=== PATIENT | male | born 1960 | race Caucasian/White ===

== ENCOUNTER → 2017-12-04 10:09 | Outpatient (CLI) | payer OTHER, SELFPAY ==
--- NOTE | 2017-12-04 | DI.RAD.S_ITS ---
PROCEDURE: XR SHOULDER LT MIN 2V INDICATIONS: LEFT SHOULDER PAIN TECHNIQUE: 3 views of the shoulder were acquired. COMPARISON: None. FINDINGS: Bones: No fractures or dislocations. No suspicious bony lesions. Visualized ribs appear intact. Soft tissues: No suspicious soft tissue calcifications. IMPRESSION: Moderate acromioclavicular joint degenerative osteoarthritis as the likely cause for current tenderness. Degeneration of this type can produce chronic impingement and may be associated with rotator cuff tear. Dictated by: Bradley Mota M.D. on 12/04/2017 at 11:06 Approved by: Bradley Mota M.D. on 12/04/2017 at 11:06
== END ==
PROVIDERS: Family Provider Family Medicine; PCP Family Medicine; Visit Provider Family Medicine
DX: M25.512 Pain in left shoulder (principal); M19.012 Primary osteoarthritis, left shoulder
CPT/HCPCS: 73030

== ENCOUNTER → 2019-12-01 16:10 | Outpatient (CLI) | payer OTHER, SELFPAY ==
--- NOTE | 2019-12-01 16:15 | DI.RAD.S_ITS ---
PROCEDURE: XR FOOT RT MIN 3V INDICATIONS: RIGHT FOOT TOE PAIN TECHNIQUE: 3 views of the foot were acquired. COMPARISON: None. FINDINGS: Bones: No fractures or dislocations. No suspicious bony lesions. Mild bunion and bunionette. Mild degeneration at the 1st metatarsophalangeal joint and multiple interphalangeal joints. Soft tissues: No tibiotalar joint effusion. Achilles tendon appears normal. Atherosclerotic calcifications are noted. IMPRESSION: 1. Mild bunion and bunionette. 2. Mild degeneration at the 1st metatarsophalangeal joint and multiple interphalangeal joints. Dictated by: Brian Quinones M.D. on 12/01/2019 at 17:44 Approved by: Brian Quinones M.D. on 12/01/2019 at 17:46
== END ==
PROVIDERS: Family Provider Family Medicine; PCP Family Medicine; Referring Provider Family Medicine; Visit Provider Family Medicine
DX: M79.674 Pain in right toe(s) (principal); M21.611 Bunion of right foot; M21.621 Bunionette of right foot; M19.071 Primary osteoarthritis, right ankle and foot
CPT/HCPCS: 73630

== ENCOUNTER 2020-03-18 12:07 | Emergency (ER) | payer OTHER, SELFPAY ==
[2020-03-18 12:08] VITALS: BP 154/74; PULSE 94; RESP 14; TEMP 37.2; O2SAT 99; BMI 23.5
--- NOTE | 2020-03-18 12:11 | DI.RAD.S_ITS ---
PROCEDURE: XR WRIST LT MIN 3V INDICATIONS: wrist injury TECHNIQUE: 3 views of the wrist were acquired. COMPARISON: None. FINDINGS: Bones: There is a nondisplaced fracture involving the distal left radius with intra-articular extension. Degenerative changes of the left 1st and 2nd carpometacarpal joint and triscaphe joint. Degenerative changes of the left thumb metacarpophalangeal and interphalangeal joints. No suspicious bony lesions. Soft tissues: No suspicious soft tissue calcifications. Mild left wrist soft tissue swelling. IMPRESSION: Nondisplaced distal left radius fracture with intra-articular extension. Dictated by: Delano Claudio M.D. on 03/18/2020 at 12:52 Approved by: Delano Claudio M.D. on 03/18/2020 at 12:55
[2020-03-18] MEDS: HYDROCODONE/ACET 5/325 TABLET 1 TAB PO (12:27)
[2020-03-18] MEDS: IBUPROFEN 400 MG TABLET 800 MG PO (12:27)
--- NOTE | 2020-03-18 12:31 | ED.UPPEXIN ---
HPI - Extremity Injury (Upper) <Luisa Vázquez PA-C - Last Filed: 03/18/20 16:41> General Chief Complaint: Extremity Injury, Upper Stated Complaint: LEFT WRIST INJURY TODAY Time Seen by Provider: 03/18/20 12:09 Source: patient Mode of arrival: Ambulatory Limitations: no limitations History of Present Illness HPI narrative: This is a well-appearing but uncomfortable 59-year-old who presents complaining of left wrist pain on the thumb side after sustaining an injury just before arrival. He states he is right-handed but he was using both have his hands to try to pull the handle on a carrier washer to started he was having low difficulty and using a lot of force the handle snapped back hitting his left wrist on the inside of his wrist he said ?it was immediately so painful eye was rolling on the ground?. He says it is still very uncomfortable and is more painful if he tries to move it. He denies any other injuries or concerns this is an isolated complaint and mechanical injury. MD complaint: injury to: left Onset (ago): minute(s) (45) Other Extremity Injury: Left: wrist Other injuries: none Handedness: right Place: home Severity: moderate Severity scale (1-10): 7 Relieving factors: cold therapy and immobilization Exacerbating factors: movement of extremity Context: direct blow Associated symptoms: denies other symptoms Related Data Home Medications Medication Instructions Recorded Confirmed HYDROCODONE/ACET (HYDROCODONE 1 - 2 tab PO Q4HP #0 09/23/11 BITARTRATE-ACETAMINOPHEN) ibuprofen 200 mg PO Q4HP #0 09/23/11 Previous Rx's Medication Instructions Recorded hydrocodone-acetaminophen 1 tab PO Q4-6H PRN 3 Days #24 tab 03/18/20 Allergies Allergy/AdvReac Type Severity Reaction Status Date / Time lactose Allergy Verified 03/18/20 12:12 Review of Systems <Luisa Vázquez PA-C - Last Filed: 03/18/20 16:41> Review of Systems Narrative: GENERAL: Denies chills, fatigue, malaise, fever, sweats. HEENT: Denies sinus pain, ear pain, sore throat, difficulty swallowing, dizziness. RESPIRATORY: Denies dyspnea, cough, wheezing, hemoptysis, sputum. CARDIOVASCULAR: Denies chest pain, palpitations, orthopnea, edema, GASTROINTESTINAL: Denies nausea, vomiting, abdominal pain, diarrhea, constipation, melena. : Denies dysuria, frequency, incontinence, hematuria, urinary retention. MUSCULOSKELETAL: Positive for pain at the thumb side of his left wrist worse with range of motion, denies other weakness, joint pain, or bony pain SKIN: Denies rash, skin lesions, or other NEUROLOGIC: Denies weakness, headache, numbness, change in speech, confusion, seizures, incoordination. PSYCHIATRIC: No concerning psychosocial issues. 12 point review of systems is negative except for those stated above ROS Unobtainable: All systems reviewed & are unremarkable except as noted in HPI and below Patient History <Luisa Vázquez PA-C - Last Filed: 03/18/20 16:41> Social History Smoking Status: Unknown if ever smoked Smoking Status: Unknown if ever smoked alcohol intake frequency: 0-2 drinks per day Substance Use Type: does not use Exam <Luisa Vázquez PA-C - Last Filed: 03/18/20 16:41> Narrative Exam Narrative: GENERAL: 59 year old patient appears stated age. Well-nourished, well-developed patient, in moderate distress. HEAD: Atraumatic. Normocephalic. EYES: Pupils equal round and reactive. Extraocular motions intact. No scleral icterus. No injection or drainage. ENT: Nose without bleeding, purulent drainage. Airway patent. NECK: Trachea midline. Non tender CARDIOVASCULAR: Regular rate and rhythm without murmurs, gallops, or rubs. RESPIRATORY: Clear to auscultation. Breath sounds equal bilaterally. No wheezes, rales, or rhonchi. GASTROINTESTINAL: Abdomen soft, non-tender, nondistended. EXTREMITIES: There is mild swelling and significant tenderness over the left lateral distal radius. He is able to move at the wrist, perform finger to thumb opposition, flexion and extension of all fingers, he has pain with flexion and extension of the wrist and reduced range of motion with this. No proximal ulnar or radial tenderness. Capillary refill is less than 2 seconds in the affected hand, skin is pink warm and dry. Sensation is intact sharp dull sensation included. No edema or joint tenderness. BACK: Nontender without deformity or crepitance. No flank tenderness. NEURO: AOx3. SKIN: No rash or erythema of visible areas Initial Vital Signs Initial Vital Signs: Vital Signs Temperature 99.0 F 03/18/20 12:08 Pulse Rate 94 H 03/18/20 12:08 Respiratory Rate 14 03/18/20 12:08 Blood Pressure 154/74 H 03/18/20 12:08 Pulse Oximetry 99 03/18/20 12:08 <Cira Elias DO - Last Filed: 03/18/20 19:13> Initial Vital Signs Initial Vital Signs: Vital Signs Temperature 99.0 F 03/18/20 12:08 Pulse Rate 94 H 03/18/20 12:08 Respiratory Rate 14 03/18/20 12:08 Blood Pressure 154/74 H 03/18/20 12:08 Pulse Oximetry 99 03/18/20 12:08 Procedures <Luisa Vázquez PA-C - Last Filed: 03/18/20 16:41> Orthopedic Splinting/Casting Injury #1: Side: left Upper Extremity Injury Location: wrist Upper Extremity Immobilizer: sugar tong splint Post splinting neuro exam: intact Post splinting vascular exam: intact Placed by: Nursing Scores <Luisa Vázquez PA-C - Last Filed: 03/18/20 16:41> GCS Jacob coma scale eye opening: Spontaneous Jacob coma scale verbal response: Orientated Jacob coma scale motor response: Obey commands Jn coma scale total score: 15 Course <OVI Crook Last Filed: 03/18/20 16:41> Course Course Narrative: I spoke with Dr. Degroot, on-call orthopedist who reviewed the patient's imaging and agrees with the plan for zara-tong. He notes that if the patient is still nondisplaced when they see him in the office he may not need surgery. 14:15 Orders Ordered: ED Orders 03/18/20 12:11 XR wrist LT min 3V Stat Discontinued Medications Hydrocodone Bitart/Acetaminophen (Hydrocodone/Acet 5/325 Tablet) 1 tab PO NOW ONE Stop: 03/18/20 12:16 Last Admin: 03/18/20 12:27 Dose: 1 tab Documented by: LIYAH Ibuprofen (Ibuprofen 400 Mg Tablet) 800 mg PO NOW ONE Stop: 03/18/20 12:16 Last Admin: 03/18/20 12:27 Dose: 800 mg Documented by: LIYAH Vital Signs Vital signs: Vital Signs - 8 hr 03/18/20 12:08 Temperature 99.0 F Pulse Rate 94 H Respiratory Rate 14 Blood Pressure 154/74 H Pulse Oximetry 99 <Cira Elias DO - Last Filed: 03/18/20 19:13> Orders Ordered: ED Orders 03/18/20 12:11 XR wrist LT min 3V Stat Discontinued Medications Hydrocodone Bitart/Acetaminophen (Hydrocodone/Acet 5/325 Tablet) 1 tab PO NOW ONE Stop: 03/18/20 12:16 Last Admin: 03/18/20 12:27 Dose: 1 tab Documented by: LIYAH Ibuprofen (Ibuprofen 400 Mg Tablet) 800 mg PO NOW ONE Stop: 03/18/20 12:16 Last Admin: 03/18/20 12:27 Dose: 800 mg Documented by: LIYAH Vital Signs Vital signs: Vital Signs - 8 hr 03/18/20 12:08 Temperature 99.0 F Pulse Rate 94 H Respiratory Rate 14 Blood Pressure 154/74 H Pulse Oximetry 99 MDM - Extremity Injury (Upper) <Luisa Vázquez PA-C - Last Filed: 03/18/20 16:41> Imaging Data Extremity x-ray #1: Attestation: I personally reviewed and interpreted this imaging study as follows: Radiologist's Impression: [address] [id number] ReportSigned Patient: Adam Hackett RMR#: [id number]: [id number]:[id number]/Sex: 59 / MDate of Service: 03/18/20Loc: EDAccession Number: [id number] Procedure: XR wrist LT min 3V Ordering Provider: Luisa Vázquez P.A-C PROCEDURE: XR WRIST LT MIN 3V INDICATIONS: wrist injury TECHNIQUE: 3 views of the wrist were acquired. COMPARISON: None. FINDINGS: Bones: There is a nondisplaced fracture involving the distal left radius with intra-articular extension. Degenerative changes of the left 1st and 2nd carpometacarpal joint and triscaphe joint. Degenerative changes of the left thumb metacarpophalangeal and interphalangeal joints. No suspicious bony lesions. Soft tissues: No suspicious soft tissue calcifications. Mild left wrist soft tissue swelling. IMPRESSION: Nondisplaced distal left radius fracture with intra-articular extension. Dictated by: Delano Claudio M.D. on 03/18/2020 at 12:52 Approved by: Delano Claudio M.D. on 03/18/2020 at 12:55 [facility] Narrative Medical decision making narrative: This is a uncomfortable appearing 59-year-old gentleman who appears younger than his stated age presents complaining of left wrist pain after sustaining an injury when he was pulling the pull cord on a carrier washer and the handle snapped back into his wrist suddenly. X-ray reveals a nondisplaced intra-articular distal radial fracture. Exam is consistent with this. No other injuries noted. Patient is provided with pain medicine, splinted in the emergency department with a sugar-tong splint he is neurovascularly intact before and after splinting. Orthopedics is consulted. Patient is discharged with pain medicine, sling, advised follow-up with orthopedics return precautions provided, all questions answered. Discharge Plan Departure Patient Disposition: Home Clinical Impression: Acute pain of left wrist Distal radius fracture, left Qualifiers: Encounter type: initial encounter Fracture type: closed Fracture morphology: other intra-articular Qualified Code(s): S52.572A - Other intraarticular fracture of lower end of left radius, initial encounter for closed fracture Instructions: DI for Distal Radius Fracture Activity Restrictions/Additional Instructions: Thank you for allowing us to be part of your care in the emergency department today. As we discussed your x-rays did show that you have a fracture in your distal radius. It is currently nondisplaced and if it states his weight is possibly may not need surgery, however you do need to follow-up with orthopedics and have it rechecked and at that time you can discuss whether not surgery will be needed. I am including information on schedule [facility] and you can see 1 of their providers. We splinted you in the emergency department, you should keep the splint on until your follow-up appointment with Orthopedics also use the sling this will help significantly with pain you can also do ice on and off for the next 24-48 hours if you like to help with pain and swelling. I am prescribing some stronger pain medicine for you for short course but in general I recommend Tylenol and ibuprofen for pain. Keeping your wrist elevated will be helpful. If you do develop color changes in your hand such as blue purple or pale discoloration or you have a loss of feeling or any other symptoms of concern do not hesitate to get rechecked right away. There is no evidence of an emergent or life threatening illness at this time, but follow up with your doctor in 1-2 days and the orthopedic doctor next week is recommended nonetheless to continue to rule out serious underlying causes of your symptoms. Please call the office for an appointment. Please return to the Emergency Department for any worsening or persistent symptoms. Please take medications as directed. Prescriptions: New hydrocodone-acetaminophen 2.5-325 mg tablet 1 tab PO Q4-6H PRN (Reason: pain) 3 Days Qty: 24 RF: 0 No Action ibuprofen 200 MG tablet 200 mg PO Q4HP Qty: 0 RF: 0 HYDROCODONE/ACET (HYDROCODONE BITARTRATE-ACETAMINOPHEN) 1 - 2 tab PO Q4HP Qty: 0 RF: 0 Referrals: Kalina Degroot MD [Physician] - (Non displaced distal L radius intra-articular fracture) Florentino Saleh MD [Primary Care Provider] - <Cira Elias DO - Last Filed: 03/18/20 19:13> Cosign ED Attending Cosdianeature Attestation: I was immediately available in the department for consultation. Documentation has been reviewed. Imaging reviewed by myself. Patient case was discussed.
--- NOTE | 2020-03-19 10:50 | PC.NURSE ---
Received phone call from [facility] regarding narcotic prescription. Not available. Dr. Gill changed to 5mg/325mg strength, same instructions and amount. Pharmacist verbalized understanding and agreement.
== END 2020-03-18 14:35 | disposition home or self-care (01) ==
PROVIDERS: Emergency Provider Student in an Organized Health Care Education/Training Program; Family Provider Family Medicine; PCP Family Medicine
DX: S52.572A Other intraarticular fracture of lower end of left radius, initial encounter for closed fracture (principal); W22.8XXA Striking against or struck by other objects, initial encounter
CPT/HCPCS: 73110; 99283

== ENCOUNTER → 2020-05-31 15:43 | Outpatient (CLI) | payer OTHER, SELFPAY ==
--- NOTE | 2020-05-31 | DI.RAD.S_ITS ---
PROCEDURE: XR LUMBAR SPINE 2-3V INDICATIONS: bilateral hip pain, back pain TECHNIQUE: 3 views of the lumbar spine were acquired. COMPARISON: [facility], , L-SPINE 2-3 VIEWS, 09/07/2011, 7:12. FINDINGS: Bones: No acute fracture identified. Multilevel degenerative endplate sclerosis and spurring. Diffuse facet arthropathy. Moderate narrowing of the lumbar disc spaces diffusely from the level of L2-sacrum. Straightening of the normal lordotic curvature. Mild levocurvature centered at the L4 level. Grade 1 retrolisthesis of L2 on L3 and L3 on L4. Soft tissues: Large amount of stool noted. IMPRESSION: Interval progression of multilevel lumbar spondylosis and facet arthropathy since 09/07/11 Lateral curvature of the spine as above. Dictated by: John Nice M.D. on 05/31/2020 at 16:56 Approved by: John Nice M.D. on 05/31/2020 at 16:57
== END ==
PROVIDERS: Family Provider Family Medicine; PCP Family Medicine; Referring Provider Family Medicine; Visit Provider Family Medicine
DX: M25.551 Pain in right hip (principal); M25.552 Pain in left hip; M47.816 Spondylosis without myelopathy or radiculopathy, lumbar region; M54.9 Dorsalgia, unspecified
CPT/HCPCS: 72100

== ENCOUNTER → 2021-05-27 13:04 | Outpatient (CLI) | payer OTHER, SELFPAY ==
[2021-05-27 14:28] LABS: COVID19 -Nasal RAPID Negative (Negative)
== END ==
PROVIDERS: Family Provider Family Medicine; PCP Family Medicine; Visit Provider Family Medicine Sleep Medicine
DX: Z20.822 Contact with and (suspected) exposure to COVID-19 (principal)
CPT/HCPCS: 87635; C9803

== ENCOUNTER 2021-05-30 13:47 | Day surgery (SDC) | payer OTHER, SELFPAY ==
[2021-05-30 14:20] VITALS: BP 141/76; PULSE 61; RESP 18; TEMP 37.2; O2SAT 99
[2021-05-30] MEDS: SODIUM CHLORIDE 0.9% 1,000 ML 84 ML IV (14:45)
--- NOTE | 2021-05-30 15:01 | PM.HP.1 ---
History of Present Illness History of Present Illness Date Patient Seen: 05/30/21 Time Patient Seen: 15:01 Chief complaint: SCREENING COLONOSCOPY Narrative: Here for colon cancer screening. Patient History Family & Social History Social History: household members significant other Tobacco & Substance use: Smoking Status Never smoker alcohol intake frequency 0-2 drinks per day Substance Use Type does not use Meds Home Medications and Allergies Home Medications Medication Instructions Recorded Confirmed Type No Known Home Medications 05/30/21 05/30/21 History Allergies Allergy/AdvReac Type Severity Reaction Status Date / Time lactose Allergy Verified 05/30/21 14:13 Review of Systems Review of Systems ROS: Yes All systems reviewed with the patient and are negative except as otherwise documented Exam Vital Signs (past 8 hours): - 05/30/21 14:20 Temperature 98.9 F Pulse Rate 61 Respiratory Rate 18 Blood Pressure 141/76 H Pulse Oximetry 99 Oxygen Delivery Method Room Air Oxygen Flow Rate 99 Const General: cooperative and comfortable Orientation: alert HENMT Head: normocephalic Ears: external ears normal Nose: external nose normal Face and sinus: normal facial exam Mouth: oral mucosae normal Eyes General: appearance normal, both eyes and all related structures Neck Neck: normal visual inspection Chest Chest: normal inspection of the chest Resp Effort & Inspection: normal respiratory effort Cardio Rate: regular rate GI Inspection: normal to inspection Skin General: no rashes or lesions noted and No jaundice Neuro General: patient alert and moves all extremities Cognition: normal cognition Speech: speech normal Extrem General: no pedal edema Psych Appearance: grossly normal Assessment & Plan Assessment & Plan narrative: 61-year-old male indicated for colon cancer screening. Colonoscopy is to be pursued today Time Spent With Patient Critical Care time: I spent a total of [] minutes of critical care time on this patient's care today; this time is exclusive of procedural time.
--- NOTE | 2021-05-30 15:02 | PM.PREOP ---
Pre-operative Note COVID-19 COVID-19 status: Negative Result date/Date tested (Pos, Neg/Pending): 05/27/21 Criteria for continued procedure: Possibility delay results in more complex future surgery or treatment Interval Note History & Physical reviewed/Exam performed by Physician: Yes Changes to H&P: No ASA Class (for procedural sedation): I
--- NOTE | 2021-05-30 16:02 | SUR.OPER ---
CECUM AT 1600
--- NOTE | 2021-05-30 16:10 | P.OP.COLON_ITS ---
Operative Date/Time/Diagnoses Date of procedure: 05/30/21 Time of procedure: 16:10 Pre-op diagnosis: Colon cancer screening Post-op diagnosis: same Procedure & Clinicians Study performed: Colonoscopy Same procedure as scheduled: Yes Indications: Colon cancer screening Surgeon: Abdi Trevizo Procedure Notes SCOAP/Timeout: Done Procedure in detail: After the risks and benefits were explained, written and verbal informed consent was obtained. The patient was brought into the procedure room and placed into the left lateral decubitus position. Please see nurse sexton helper note for sedation details. Digital rectal examination was accomplished. The scope was introduced into the patient and advanced under direct visualization to the cecum as identified by the appendiceal orifice and ileocecal valve. The scope was slowly withdrawn to carefully examine the mucosa for any defects or lesions. Comprehensive imaging was accomplished throughout the rectum including the dentate line. The colon was decompressed, the scope was then removed from the patient who tolerated the procedure well. Bowel prep adequate Adult colonoscope Scope withdrawal time: 7 minutes Sedation minutes: 18 Specimen(s): none sent Complications: none Impression: Mild diverticulosis was noted in the sigmoid. Grade 1 internal hemorrhoids were noted. No significant polyps mass lesions nor inflammatory features identified throughout. Endoscopic diagnosis 1. Diverticulosis 2. Grade 1 hemorrhoids Post-procedure Plan for aftercare: Repeat colonoscopy 10 years time sooner should symptoms warrant an earlier exam. Disposition: PACU
[2021-05-30 16:13] VITALS: BP 109/70; PULSE 67; RESP 22; TEMP 36.3; O2SAT 99
[2021-05-30 16:18] VITALS: BP 104/60; PULSE 63; RESP 15; O2SAT 99
[2021-05-30 16:23] VITALS: BP 130/70; PULSE 61; RESP 16; O2SAT 99
[2021-05-30 16:29] VITALS: BP 130/70; PULSE 62; RESP 16; TEMP 36.5; O2SAT 99
[2021-05-30 16:31] VITALS: BP 129/67; PULSE 62; RESP 16; O2SAT 99
== END 2021-05-30 16:37 | disposition home or self-care (01) ==
LOC: ENDO 13:49
PROVIDERS: Family Provider Family Medicine; PCP Family Medicine; Referring Provider Internal Medicine Gastroenterology; Visit Provider Internal Medicine Gastroenterology
PROC: 0DJD8ZZ Inspection of Lower Intestinal Tract, Via Natural or Artificial Opening Endoscopic (ICD-10-PCS; CPT 45378; principal; 2021-05-30 15:00)
DX: Z12.11 Encounter for screening for malignant neoplasm of colon (principal); K57.30 Diverticulosis of large intestine without perforation or abscess without bleeding; K64.0 First degree hemorrhoids
CPT/HCPCS: 45378; J2704

== ENCOUNTER → 2021-08-23 09:41 | Outpatient (CLI) | payer OTHER, SELFPAY ==
--- NOTE | 2021-08-23 | DI.RAD.S_ITS ---
PROCEDURE: XR HAND LT MIN 3V INDICATIONS: LEFT HAND PAIN TECHNIQUE: 3 views of the hand(s) acquired. COMPARISON: None. FINDINGS: Bones: No fractures or dislocations. Carpal bones are normally aligned. No suspicious bony lesions. Mild polyarticular degenerative changes, for example at the 1st CMC and STT joints, scattered MCP joints and IP joints. Small periarticular lucency at the 4th digit DIP joint. Soft tissues: No suspicious soft tissue calcifications. IMPRESSION: 1. No acute osseous abnormality. 2. Scattered degenerative changes throughout the hand. Small periarticular lucency at the 4th digit DIP joint, could represent a subchondral cyst versus erosion. Inflammatory arthropathy cannot be excluded. Dictated by: Christopher Prince M.D. on 08/23/2021 at 18:53 Approved by: Christopher Prince M.D. on 08/23/2021 at 18:59
== END ==
PROVIDERS: Family Provider Family Medicine; PCP Family Medicine; Referring Provider Family Medicine; Visit Provider Family Medicine
DX: M79.642 Pain in left hand (principal)
CPT/HCPCS: 73130

== ENCOUNTER 2024-03-04 09:45 | Outpatient (RCR) | payer OTHER, SELFPAY ==
--- NOTE | 2024-01-24 17:42 | PT.OIE ---
Current Diagnoses Primary osteoarthritis, right shoulder (01/24/24) Stiffness of right shoulder, not elsewhere classified (01/24/24) Muscle weakness (generalized) (01/24/24) Visit Care Team Role Provider Type Florentino Saleh MD Family Provider Physician Primary Care Provider Specialty: Family Practice Address: [address] [place] [address], [facility] [place], [address] Email: [email or web address] Kyle Menendez PA-C Attending Provider Non-Staff Referring Provider Specialty: Medical Address: [address] [place] [address], [id number] Email: Physical Therapy Initial Evaluation PT-OP-A Visit Information Start: 01/11/24 18:16 Freq: Status: Active Protocol: Document 01/24/24 13:51 LRN (Rec: 01/24/24 14:43 LRN [id number]) Out-Patient Physical Therapy Visit Information Visit Information Visit Type Initial Evaluation Visit Start Time 13:51 Visit Stop Time 14:40 Visit Number 1 Evaluation Information Evaluation Date 01/24/24 Precautions Precautions R total shoulder arthroplasty, tenodesis of Long Head of Biceps. NWBing R UE. Sling at all times (6 wks), removal 3 times a day to move elbow wrist, fingers. PROM only: IR to body, ER to 0 deg's, FF to 90 deg's ABD to 0 deg's, arm in neutral, NO ER of arm. PT-OP-B Current Condition Start: 01/11/24 18:16 Freq: Status: Active Protocol: Document 01/24/24 13:51 LRN (Rec: 01/24/24 14:43 LRN [id number]) Current Condition History of Current Condition Onset Date Jan 02, 2024 Current Complaints Annoying pain at the shoulder and incision. R neck is tight wearing sling History of Current Condition Pt reports 3 wks ago (on Sun) undergoing an elective surgery of R shoulder GHJ arthroplasty due to arthritis, attending with a written protocol in hand. Pt is R hand dominant. He reports being taught previously Codman 's exercise (50x each direction) and table slides forward and to the side. After wearing sling 4-5 hrs he has tightness of the neck. States HERNÁNDEZ told him to wear the sling to make him comfortable . Wears when going out of the house but removes it when sitting. 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 He was hoping to be gone for 6 wks towards the end of January, but is willing to stay around if needed for his rehab. Future Testing and Treatments Planned Feb 11 is f/u appt. Treatment Goals Patient/Caregiver Goals Pt goals: Be able to scatch his head. Be able to hang a shirt up overhead. Relieve R shouulder pain that was constant and annoying. Consistent with a HEP. Personal Factors Other Personal Factors That May Effect Arthritic back pain. R Therapy/Recovery shoulder arthroscopic surgery 30-40 yrs ago and at age 19. PT-OP-C Subjective Start: 01/11/24 18:16 Freq: Status: Active Protocol: Document 01/24/24 13:51 LRN (Rec: 01/24/24 14:43 LRN [id number]) Patient Questionnaires Pelvic Pain and Urgency/Frequency Patient Symptom Scale Pelvic Pain Score 77.27 Quick Dash- Upper Extremity Quick Dash UE Score 72.72 OP-PT Pain Assessment Pain Assessment Grid Paper Pain Assessment Grid Completed Yes Location R shoulder Pain Location Details Anterior lateral chest at incision site. Intensity 3 Scale Used Numeric (0 - 10) Description Dull Description- Other Pulling sensation Frequency Constant Pain Aggravating Factors Exercise Pain Alleviating Factors Cold PT-OP-H Neuro Start: 01/11/24 18:16 Freq: Status: Active Protocol: Document 01/24/24 13:51 LRN (Rec: 01/24/24 14:43 LRN [id number]) Sensation Evaluation Gross Sensation Gross Sensation WNL PT-OP-J Posture/Palpation/Skin Start: 01/11/24 18:16 Freq: Status: Active Protocol: Document 01/24/24 13:51 LRN (Rec: 01/24/24 14:43 LRN [id number]) Posture Evaluation Position Standing Head/C-Spine Posture Forward Head Scapula Posture (R) Depressed Comments Posture Comments R shoulder low, decreased thoracic and lumbar curvature. Palpation Assessment Location R shoulder Palpation Location Anterior lateral chest in location of scar. Palpation Findings Soft Tissue Tightness, Tenderness Palpation Details Atrophy of perscapular muscles and mild increased R arm/hand . PT-OP-K Range of Motion Start: 01/11/24 18:16 Freq: Status: Active Protocol: Document 01/24/24 13:51 LRN (Rec: 01/24/24 14:43 LRN [id number]) Cervical Spine Range of Motion Cervical Spine Active Degrees Testing Position Sitting Flexion 65 Extension 32 Rotation Left 47 Rotation Right 47 Lateral Flexion Left 22 Lateral Flexion Right 23 ROM Limitations Soft Tissue Tightness Shoulder Goniometric Range of Motion Shoulder Right Passive Testing Position Supine Flexion 70 Abduction 2 Comments Pt able to rest his hand against his belly. ER - not assessed. Left Active Testing Position Sitting Flexion 162 Extension 50 Abduction 160 External Rotation at 0 degrees Abduction 65 Internal Rotation Behind Back (text) T8 Comments Behind head T4 PT-OP-M Strength Start: 01/11/24 18:16 Freq: Status: Active Protocol: Document 01/24/24 13:51 LRN (Rec: 01/24/24 14:43 LRN [id number]) Shoulder Strength Shoulder Manual Muscle Testing Right Comments Deferred testing due to recent surgery. PT-OP-Q Treatments Start: 01/11/24 18:16 Freq: Status: Active Protocol: Document 01/24/24 13:51 LRN (Rec: 01/24/24 14:43 LRN [id number]) Therapeutic Exercises Supine Exercises PROM Supine Exercise Name R shoulder flex Reps/Minutes 2' Comments Resting position: folded pillow under arm. Standing Exercises Codman's EX Standing Exercise Name R shoulder Codman's Side right Reps/Minutes 15x 2 each Self-Care/Home Management Treatment Education Other Education Discussed results of evaluation, goals, treatment, and plan of care (POC) with pt , attendance/cx/dns policy; pt agreeable to evaluation, goals, treatment, attendance/ cx/dns policy and POC. Activities Self-Care/Home Management Activities I/S pt to use cold pack for pain management. PT-OP-T Assessment and Plan Start: 01/11/24 18:16 Freq: Status: Active Protocol: Document 01/24/24 13:51 LRN (Rec: 01/24/24 14:43 LRN [id number]) Physical Therapy Assessment Rehab Potential Rehabilitation Potential Excellent Evaluation Complexity Number of Personal Factors/Comorbidities 1-2 Impairments Impairments Activity Tolerance,Edema,Pain, Posture,ROM,Soft Tissue Mobility,Strength Goals Three Impairment Decreased R shoulder strength limited by TSA protocol STG Duration 03/07/24 Sheet Tailer Goal (LTG) Pt will be able to hang a shirt up overhead. LTG Duration 04/18/24 Two Impairment Decreased functional R shoulder AROM Short Term Goal (STG) Pt will be able to relieve his constant and annoying R shoulder pain (rated 3/10) to tolerate sleeping in his bed at night. STG Duration 03/07/24 Sheet Tailer Goal (LTG) Pt will be able to scatch his head. LTG Duration 04/18/24 One Impairment Pt lacks appropriate self care HEP. Short Term Goal (STG) Pt will be educated in proper sitting/standing posture and self care pain management ( modalities and positioning). and education of significant other to assist pt in HEP as needed. STG Duration 03/07/24 Sheet Tailer Goal (LTG) Pt will be independent and consistent in an effective self care HEP for progressive R shoulder ROM and when appropriate strengthening. LTG Duration 04/18/24 Assessment Summary Assessment Pt is a 63 yo male who is ~3 wks (on 01/02/24) s/p elective R total arthroplasty of GHJ and tenodesis of Long Head of Biceps Muscle. He presents with his R am in a sling that he easily maneuvers off/on. He is having pain rated 3/10 indicating it is most uncomfortable at his healing scar location. He has been sleepin in a recliner chair and doing ex's he was shown to do at his last physician appointment (arm slides on the table foward and to the side) . He is appropriately limited in his R shoulder PROM and has a hard to relaxing his shoulder while PROM is being performed, even with cuing. The tolerated assessment well and appears be moving well with his previously shown PROM ex's; therefore the pt is expected to do well with therapy. With holiday scheduling and the pt planning of travel trips, the pt's progress may be slightly hindered resulting in a slight longer rehab time that otherwise would be expected. The pt will benefit from skilled phyiscal therapy to progress his ROM, minimize his pain and progress him toward prior level of function when appropriate, working within parameters of his issued protocol. Physical Therapy Plan Frequency and Duration Frequency of Treatment 2x/Week Duration of treatment (weeks) 12 Plan of Care Start Date 01/24/24 Plan of Care End Date 04/18/24 Therapeutic Interventions Therapeutic Interventions Home Exercise Program,Manual Therapy,Self-Care/Home Management,Soft Tissue Mobilization,Taping, Therapeutic Activities, Therapeutic Exercises Modalities Cold Pack/Ice Massage,Electric Stimulation,Hot Packs Next Visit Focus/Plan Next Note Type Treatment Note Next Visit Plan MMT L shoulder, elbow, wrist, fingers, R shoulder ER (sup, elbow by side). Review table slide and hold on lateral slides. Review elbow flex for AAROM to start. HEP: R forearm/wrist/hand/ finger ROM. AAROM R elbow. Educate pt in nighttime/ resting positioning w/pillows to avoid hyper ext of R shoulder. Educate in pain/edema management. Assess scar healing and start scar mob if appropriate. Monitor for proper mvmt for donning/doffing sling. Per protocol: PROM flex, ER to neutral; STM for pain management. End: Cold pack with elevation of arm if pt requests. POC: Rehab per protocol of R TSA w/tenodesis of Long Head of Biceps Rpr. Therapeutic Ex (when appropriate strengthening, ROM), Therapeutic Activity (posture and night positional training) , manual therapy (STM), Pt Education (HEP, Edema and pain mgmt). Modalities as needed (cold pack, MHP, E stim)
--- NOTE | 2024-01-28 16:29 | PT.OTN ---
Current Diagnoses Primary osteoarthritis, right shoulder (01/28/24) Stiffness of right shoulder, not elsewhere classified (01/28/24) Muscle weakness (generalized) (01/28/24) Physical Therapy Treatment Note PT-OP-A Visit Information Start: 01/11/24 18:16 Freq: Status: Active Protocol: Document 01/28/24 13:51 LRN (Rec: 01/28/24 14:38 LRN [id number]) Out-Patient Physical Therapy Visit Information Visit Information Visit Type Treatment Note Visit Start Time 13:51 Visit Stop Time 14:31 Visit Number 04/02 Evaluation Information Evaluation Date 01/24/24 Precautions Precautions R total shoulder arthroplasty, tenodesis of Long Head of Biceps. NWBing R UE. Sling at all times (6 wks), removal 3 times a day to move elbow wrist, fingers. PROM only: IR to body, ER to 0 deg's, FF to 90 deg's ABD to 0 deg's, arm in neutral, NO ER of arm. PT-OP-B Current Condition Start: 01/11/24 18:16 Freq: Status: Active Protocol: Document 01/24/24 13:51 LRN (Rec: 01/24/24 14:43 LRN [id number]) Current Condition History of Current Condition Onset Date Jan 02, 2024 Current Complaints Annoying pain at the shoulder and incision. R neck is tight wearing sling History of Current Condition Pt reports 3 wks ago (on Sun) undergoing an elective surgery of R shoulder GHJ arthroplasty due to arthritis, attending with a written protocol in hand. Pt is R hand dominant. He reports being taught previously Codman 's exercise (50x each direction) and table slides forward and to the side. After wearing sling 4-5 hrs he has tightness of the neck. States HERNÁNDEZ told him to wear the sling to make him comfortable . Wears when going out of the house but removes it when sitting. 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 He was hoping to be gone for 6 wks towards the end of January, but is willing to stay around if needed for his rehab. Future Testing and Treatments Planned Feb 11 is f/u appt. Treatment Goals Patient/Caregiver Goals Pt goals: Be able to scatch his head. Be able to hang a shirt up overhead. Relieve R shouulder pain that was constant and annoying. Consistent with a HEP. Personal Factors Other Personal Factors That May Effect Arthritic back pain. R Therapy/Recovery shoulder arthroscopic surgery 30-40 yrs ago and at age 19. PT-OP-C Subjective Start: 01/11/24 18:16 Freq: Status: Active Protocol: Document 01/28/24 13:51 LRN (Rec: 01/28/24 14:38 LRN [id number]) OP-PT Subjective Patient Comments Patient Comments States his pain hasn't increased. PT-OP-H Neuro Start: 01/11/24 18:16 Freq: Status: Active Protocol: Document 01/24/24 13:51 LRN (Rec: 01/24/24 14:43 LRN [id number]) Sensation Evaluation Gross Sensation Gross Sensation WNL PT-OP-J Posture/Palpation/Skin Start: 01/11/24 18:16 Freq: Status: Active Protocol: Document 01/24/24 13:51 LRN (Rec: 01/24/24 14:43 LRN [id number]) Posture Evaluation Position Standing Head/C-Spine Posture Forward Head Scapula Posture (R) Depressed Comments Posture Comments R shoulder low, decreased thoracic and lumbar curvature. Palpation Assessment Location R shoulder Palpation Location Anterior lateral chest in location of scar. Palpation Findings Soft Tissue Tightness, Tenderness Palpation Details Atrophy of perscapular muscles and mild increased R arm/hand . PT-OP-K Range of Motion Start: 01/11/24 18:16 Freq: Status: Active Protocol: Document 01/24/24 13:51 LRN (Rec: 01/24/24 14:43 LRN [id number]) Cervical Spine Range of Motion Cervical Spine Active Degrees Testing Position Sitting Flexion 65 Extension 32 Rotation Left 47 Rotation Right 47 Lateral Flexion Left 22 Lateral Flexion Right 23 ROM Limitations Soft Tissue Tightness Shoulder Goniometric Range of Motion Shoulder Right Passive Testing Position Supine Flexion 70 Abduction 2 Comments Pt able to rest his hand against his belly. ER - not assessed. Left Active Testing Position Sitting Flexion 162 Extension 50 Abduction 160 External Rotation at 0 degrees Abduction 65 Internal Rotation Behind Back (text) T8 Comments Behind head T4 PT-OP-M Strength Start: 01/11/24 18:16 Freq: Status: Active Protocol: Document 01/24/24 13:51 LRN (Rec: 01/24/24 14:43 LRN [id number]) Shoulder Strength Shoulder Manual Muscle Testing Right Comments Deferred testing due to recent surgery. PT-OP-Q Treatments Start: 01/11/24 18:16 Freq: Status: Active Protocol: Document 01/28/24 13:51 LRN (Rec: 01/28/24 14:38 LRN [id number]) Therapeutic Exercises Supine Exercises PROM Supine Exercise Name PROM ER Side right Equipment Used Cane, 2 pillows support under R arm, double pillow under head Reps/Minutes 5' Sitting Exercises Shoulder shrugs Side bilateral Reps/Minutes 3' 1 SH/2 SR Scapular retraction Side bilateral Reps/Minutes 3' 1-2 SH/1-2 SR Shoulder ER hand on belly to neutral Sitting Exercise Name Trng for PROM Side right Reps/Minutes 5' Table slides Sitting Exercise Name PROM (forward SL, DL) : Flex training of max 90 deg's Side right Reps/Minutes 13' Comments Extra time for set up Manual Therapy Treatment Consent Patient gave verbal consent for manual Yes treatment Soft Tissue Mobilization R upper shoulder Body Location R UT, C/S paraspinals Mobilization Type Strumming,Trigger Point Release Intensity/Depth Moderate Body Position Sitting Comments TrP at Supraspinatus. Strumming at C/S paraspinals. R Shoulder scar Body Location R anterior shoulder Mobilization Type Other Intensity/Depth Superficial Body Position Sitting Comments Superficial scar mob. I/S pt in self scar mob in areas of full healing. Self-Care/Home Management Treatment Education Other Education Educated pt in nighttime/ resting positioning w/pillows to avoid hyper ext of R shoulder. Activities Self-Care/Home Management Activities Issued & reviewed HEP: R AAROM forearm/wrist/hand, AAROM R elbow, neck L SB stretch. PT-OP-T Assessment and Plan Start: 01/11/24 18:16 Freq: Status: Active Protocol: Document 01/28/24 13:51 LRN (Rec: 01/28/24 14:38 N [id number]) Physical Therapy Assessment Goals Three Impairment Decreased R shoulder strength limited by TSA protocol STG Duration 03/07/24 Correction Goal (LTG) Pt will be able to hang a shirt up overhead. LTG Duration 04/18/24 Two Impairment Decreased functional R shoulder AROM Short Term Goal (STG) Pt will be able to relieve his constant and annoying R shoulder pain (rated 3/10) to tolerate sleeping in his bed at night. STG Duration 03/07/24 Meteorological Observer Goal (LTG) Pt will be able to scatch his head. LTG Duration 04/18/24 One Impairment Pt lacks appropriate self care HEP. Short Term Goal (STG) Pt will be educated in proper sitting/standing posture and self care pain management ( modalities and positioning). and education of significant other to assist pt in HEP as needed. STG Duration 03/07/24 Correction Goal (LTG) Pt will be independent and consistent in an effective self care HEP for progressive R shoulder ROM and when appropriate strengthening. LTG Duration 04/18/24 Assessment Summary Assessment Pt is a 63 yo male 2 days short of 4 wks po R TSA and tenodesis of Long Head of Biceps (late phase of protocol (4-6 wks). He comes in with no sling but forearm supported by coat in his buttoned coat. Reviewed pt's surgeon protocol; pt has + attitude to adhering to protocol and commits to stopping lateral table slides. R shoulder tightness limits flex to max of 90 deg's PROM; pt able to achieve neutral position of arm for ER 0 deg's w/o difficulty. Physical Therapy Plan Frequency and Duration Frequency of Treatment 2x/Week Duration of treatment (weeks) 12 Plan of Care Start Date 01/24/24 Plan of Care End Date 04/18/24 Next Visit Focus/Plan Next Note Type Treatment Note Next Visit Plan Next: Scheduling with purple slip. MMT strength or L shoulder/elbow/wrist/fingers. Start with Codman's warm up, review previously issued HEP. Educate in proper sitting/ standing posture and self care pain management (modalities and positioning) Issue HEP: finger AROM & PROM R shoulder Flex (table slide). Educate in pain/edema management. Assess scar healing and start scar mob if appropriate. Monitor for proper mvmt for donning/doffing sling. Per protocol: PROM flex, ER to neutral; STM for pain management. End: Cold pack with elevation of arm if pt requests. POC: Rehab per protocol of R TSA w/tenodesis of Long Head of Biceps Rpr. Therapeutic Ex (when appropriate strengthening, ROM), Therapeutic Activity (posture and night positional training) , manual therapy (STM), Pt Education (HEP, Edema and pain mgmt). Modalities as needed (cold pack, MHP, E stim)
--- NOTE | 2024-01-31 16:05 | PT.OTN ---
Current Diagnoses Primary osteoarthritis, right shoulder (01/31/24) Stiffness of right shoulder, not elsewhere classified (01/31/24) Muscle weakness (generalized) (01/31/24) Physical Therapy Treatment Note PT-OP-A Visit Information Start: 01/11/24 18:16 Freq: Status: Active Protocol: Document 01/31/24 14:35 SW (Rec: 01/31/24 16:03 SW [id number]) Out-Patient Physical Therapy Visit Information Visit Information Visit Type Treatment Note Visit Note Guido Visit Start Time 13:34 Visit Stop Time 14:14 Visit Number 3 Number of VETERINARY SURGEON Visits 1 Precautions Precautions R total shoulder arthroplasty, tenodesis of Long Head of Biceps. NWBing R UE. Sling at all times (6 wks), removal 3 times a day to move elbow wrist, fingers. PROM only: IR to body, ER to 0 deg's, FF to 90 deg's ABD to 0 deg's, arm in neutral, NO ER of arm. PT-OP-B Current Condition Start: 01/11/24 18:16 Freq: Status: Active Protocol: Document 01/24/24 13:51 LRN (Rec: 01/24/24 14:43 LRN [id number]) Current Condition History of Current Condition Onset Date Jan 02, 2024 Current Complaints Annoying pain at the shoulder and incision. R neck is tight wearing sling History of Current Condition Pt reports 3 wks ago (on Sun) undergoing an elective surgery of R shoulder GHJ arthroplasty due to arthritis, attending with a written protocol in hand. Pt is R hand dominant. He reports being taught previously Codman 's exercise (50x each direction) and table slides forward and to the side. After wearing sling 4-5 hrs he has tightness of the neck. States HERNÁNDEZ told him to wear the sling to make him comfortable . Wears when going out of the house but removes it when sitting. 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 He was hoping to be gone for 6 wks towards the end of January, but is willing to stay around if needed for his rehab. Future Testing and Treatments Planned Feb 11 is f/u appt. Treatment Goals Patient/Caregiver Goals Pt goals: Be able to scatch his head. Be able to hang a shirt up overhead. Relieve R shouulder pain that was constant and annoying. Consistent with a HEP. Personal Factors Other Personal Factors That May Effect Arthritic back pain. R Therapy/Recovery shoulder arthroscopic surgery 30-40 yrs ago and at age 19. PT-OP-C Subjective Start: 01/11/24 18:16 Freq: Status: Active Protocol: Document 01/31/24 14:35 SW (Rec: 01/31/24 16:03 SW [id number]) OP-PT Subjective Patient Comments Patient Comments Pt reports pain from starting exercises otherwise no other changes. PT-OP-H Neuro Start: 01/11/24 18:16 Freq: Status: Active Protocol: Document 01/24/24 13:51 LRN (Rec: 01/24/24 14:43 LRN [id number]) Sensation Evaluation Gross Sensation Gross Sensation WNL PT-OP-J Posture/Palpation/Skin Start: 01/11/24 18:16 Freq: Status: Active Protocol: Document 01/24/24 13:51 LRN (Rec: 01/24/24 14:43 LRN [id number]) Posture Evaluation Position Standing Head/C-Spine Posture Forward Head Scapula Posture (R) Depressed Comments Posture Comments R shoulder low, decreased thoracic and lumbar curvature. Palpation Assessment Location R shoulder Palpation Location Anterior lateral chest in location of scar. Palpation Findings Soft Tissue Tightness, Tenderness Palpation Details Atrophy of perscapular muscles and mild increased R arm/hand . PT-OP-K Range of Motion Start: 01/11/24 18:16 Freq: Status: Active Protocol: Document 01/24/24 13:51 LRN (Rec: 01/24/24 14:43 LRN [id number]) Cervical Spine Range of Motion Cervical Spine Active Degrees Testing Position Sitting Flexion 65 Extension 32 Rotation Left 47 Rotation Right 47 Lateral Flexion Left 22 Lateral Flexion Right 23 ROM Limitations Soft Tissue Tightness Shoulder Goniometric Range of Motion Shoulder Right Passive Testing Position Supine Flexion 70 Abduction 2 Comments Pt able to rest his hand against his belly. ER - not assessed. Left Active Testing Position Sitting Flexion 162 Extension 50 Abduction 160 External Rotation at 0 degrees Abduction 65 Internal Rotation Behind Back (text) T8 Comments Behind head T4 PT-OP-M Strength Start: 01/11/24 18:16 Freq: Status: Active Protocol: Document 01/24/24 13:51 LRN (Rec: 01/24/24 14:43 LRN [id number]) Shoulder Strength Shoulder Manual Muscle Testing Right Comments Deferred testing due to recent surgery. PT-OP-Q Treatments Start: 01/11/24 18:16 Freq: Status: Active Protocol: Document 01/31/24 14:35 (Rec: 01/31/24 16:03 [id number]) Therapeutic Exercises Supine Exercises PROM Supine Exercise Name PROM ER to neutral Side right Equipment Used Cane, 2 pillows support under R arm, double pillow under head Reps/Minutes 5' Comments cues for setup, passive ROM only, cued for breathwork Sitting Exercises Finger ROM Sitting Exercise Name Flex/ext, Abd/add Side right Comments Issued HEP hand written, print next session, HEP2go was down Shoulder shrugs Sitting Exercise Name Reveiwed Side bilateral Reps/Minutes 1 SH/2 SR Scapular retraction Sitting Exercise Name Reviewed Side bilateral Reps/Minutes 1-2 SH/1-2 SR Table slides Sitting Exercise Name PROM (forward SL, DL) : Flex training of max 90 deg's Side right Equipment Used Issued HEP hand written w/ precautions, print next session HEP2go was down Comments Extra time for set up, cued for staying within more comfortable range Standing Exercises Codman's EX Standing Exercise Name R shoulder Codman's, warm up Side right Reps/Minutes 15x 2 each Self-Care/Home Management Treatment Education Patient Education Home Exercise Program,Joint Protection,Pain Management, Posture,Safety Other Education pt educucation for sleep positioning, precautions, precautions with HEP, Sitting Posture, Modalities for pain PT-OP-T Assessment and Plan Start: 01/11/24 18:16 Freq: Status: Active Protocol: Document 01/31/24 14:35 (Rec: 01/31/24 16:03 [id number]) Physical Therapy Assessment Goals Three Impairment Decreased R shoulder strength limited by TSA protocol STG Duration 03/07/24 Customs Verifier Goal (LTG) Pt will be able to hang a shirt up overhead. LTG Duration 04/18/24 Two Impairment Decreased functional R shoulder AROM Short Term Goal (STG) Pt will be able to relieve his constant and annoying R shoulder pain (rated 3/10) to tolerate sleeping in his bed at night. STG Duration 03/07/24 Customs Verifier Goal (LTG) Pt will be able to scatch his head. LTG Duration 04/18/24 One Impairment Pt lacks appropriate self care HEP. Short Term Goal (STG) Pt will be educated in proper sitting/standing posture and self care pain management ( modalities and positioning). and education of significant other to assist pt in HEP as needed. 01/31/24: Pt education in proper sitting posture, pt education on modalities for pain, sleep positioning STG Duration 03/07/24 (progressing 01/31/24 ) Customs Verifier Goal (LTG) Pt will be independent and consistent in an effective self care HEP for progressive R shoulder ROM and when appropriate strengthening. 01/31/24: Table slides(passive R shoulder flex, less than 90 degrees), Finger AROM LTG Duration 04/18/24 Assessment Summary Assessment Continued per pt protocol. Pt reports some pain from starting new exercises last session, reviewed exercises this session to ensure correct execution with passive movement only, cueing required initially, then pt demonstrated good carryover. Instructed pt to decrease table slide ROM to improve tolerance. Issued hand written HEP for table slides and finger AROM due to HEP2go system being down. Noted ROM limit of no more than 90 degrees flex for table slides and passive movement only on hand written HEP, reviewed pt setup and instructed and pt demonstrated good form without mm activation in R shoulder. Issued hand written HEP for finger AROM. Plan to followup on pt tolerance next session and print Table slides/finger AROM for HEP file and pt copy next session, due to HEP2go being down and unable to print . Cues throughout session to support RUE to ensure pt does not activate right shoulder muscles. Pt tolerated treatment well with no increase in pain throughout session. Physical Therapy Plan Frequency and Duration Frequency of Treatment 2x/Week Duration of treatment (weeks) 12 Plan of Care Start Date 01/24/24 Plan of Care End Date 04/18/24 Therapeutic Interventions Therapeutic Interventions Home Exercise Program,Manual Therapy,Self-Care/Home Management,Soft Tissue Mobilization,Taping, Therapeutic Activities, Therapeutic Exercises Modalities Cold Pack/Ice Massage,Electric Stimulation,Hot Packs Next Visit Focus/Plan Next Note Type Treatment Note Next Visit Plan Next: MMT strength or L shoulder/elbow/wrist/fingers. Start with Codman's warm up, review previously issued HEP for tolerance. Educate in proper standing posture Issue HEP: finger AROM & PROM R shoulder Flex (table slide)- issued Hand written with precautions and instructions due to HEP2go being down, plan to issue HEP printout next session. Educate in pain/edema management. Assess scar healing and start scar mob if appropriate. Monitor for proper mvmt for donning/doffing sling. Per protocol: PROM flex, ER to neutral; STM for pain management. End: Cold pack with elevation of arm if pt requests. POC: Rehab per protocol of R TSA w/tenodesis of Long Head of Biceps Rpr. Therapeutic Ex (when appropriate strengthening, ROM), Therapeutic Activity (posture and night positional training) , manual therapy (STM), Pt Education (HEP, Edema and pain mgmt). Modalities as needed (cold pack, MHP, E stim)
--- NOTE | 2024-02-05 17:01 | PT.OTN ---
Current Diagnoses Primary osteoarthritis, right shoulder (02/05/24) Stiffness of right shoulder, not elsewhere classified (02/05/24) Muscle weakness (generalized) (02/05/24) Physical Therapy Treatment Note PT-OP-A Visit Information Start: 01/11/24 18:16 Freq: Status: Active Protocol: Document 02/05/24 11:37 SW (Rec: 02/05/24 12:51 SW [id number]) Out-Patient Physical Therapy Visit Information Visit Information Visit Type Treatment Note Visit Note Guido Visit Start Time 11:34 Visit Stop Time 11:14 Visit Number 4/ Number of HOME HEALTH CARE CASE MANAGER Visits 2 Precautions Precautions R total shoulder arthroplasty, tenodesis of Long Head of Biceps. NWBing R UE. Sling at all times (6 wks), removal 3 times a day to move elbow wrist, fingers. PROM only: IR to body, ER to 0 deg's, FF to 90 deg's ABD to 0 deg's, arm in neutral, NO ER of arm. PT-OP-B Current Condition Start: 01/11/24 18:16 Freq: Status: Active Protocol: Document 01/24/24 13:51 LRN (Rec: 01/24/24 14:43 LRN [id number]) Current Condition History of Current Condition Onset Date Jan 02, 2024 Current Complaints Annoying pain at the shoulder and incision. R neck is tight wearing sling History of Current Condition Pt reports 3 wks ago (on Sun) undergoing an elective surgery of R shoulder GHJ arthroplasty due to arthritis, attending with a written protocol in hand. Pt is R hand dominant. He reports being taught previously Codman 's exercise (50x each direction) and table slides forward and to the side. After wearing sling 4-5 hrs he has tightness of the neck. States HERNÁNDEZ told him to wear the sling to make him comfortable . Wears when going out of the house but removes it when sitting. 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 He was hoping to be gone for 6 wks towards the end of January, but is willing to stay around if needed for his rehab. Future Testing and Treatments Planned Feb 11 is f/u appt. Treatment Goals Patient/Caregiver Goals Pt goals: Be able to scatch his head. Be able to hang a shirt up overhead. Relieve R shouulder pain that was constant and annoying. Consistent with a HEP. Personal Factors Other Personal Factors That May Effect Arthritic back pain. R Therapy/Recovery shoulder arthroscopic surgery 30-40 yrs ago and at age 19. PT-OP-C Subjective Start: 01/11/24 18:16 Freq: Status: Active Protocol: Document 02/05/24 11:37 SW (Rec: 02/05/24 12:51 SW [id number]) OP-PT Subjective Patient Comments Patient Comments Pt came into session w/out sling, RUE supported by buttoned coat. Pt reports exercises are feeling better, good carryover of HEP. Pt reports discomfort in neck. PT-OP-H Neuro Start: 01/11/24 18:16 Freq: Status: Active Protocol: Document 01/24/24 13:51 LRN (Rec: 01/24/24 14:43 LRN [id number]) Sensation Evaluation Gross Sensation Gross Sensation WNL PT-OP-J Posture/Palpation/Skin Start: 01/11/24 18:16 Freq: Status: Active Protocol: Document 01/24/24 13:51 LRN (Rec: 01/24/24 14:43 LRN [id number]) Posture Evaluation Position Standing Head/C-Spine Posture Forward Head Scapula Posture (R) Depressed Comments Posture Comments R shoulder low, decreased thoracic and lumbar curvature. Palpation Assessment Location R shoulder Palpation Location Anterior lateral chest in location of scar. Palpation Findings Soft Tissue Tightness, Tenderness Palpation Details Atrophy of perscapular muscles and mild increased R arm/hand . PT-OP-K Range of Motion Start: 01/11/24 18:16 Freq: Status: Active Protocol: Document 01/24/24 13:51 LRN (Rec: 01/24/24 14:43 LRN [id number]) Cervical Spine Range of Motion Cervical Spine Active Degrees Testing Position Sitting Flexion 65 Extension 32 Rotation Left 47 Rotation Right 47 Lateral Flexion Left 22 Lateral Flexion Right 23 ROM Limitations Soft Tissue Tightness Shoulder Goniometric Range of Motion Shoulder Right Passive Testing Position Supine Flexion 70 Abduction 2 Comments Pt able to rest his hand against his belly. ER - not assessed. Left Active Testing Position Sitting Flexion 162 Extension 50 Abduction 160 External Rotation at 0 degrees Abduction 65 Internal Rotation Behind Back (text) T8 Comments Behind head T4 PT-OP-M Strength Start: 01/11/24 18:16 Freq: Status: Active Protocol: Document 01/24/24 13:51 LRN (Rec: 01/24/24 14:43 LRN [id number]) Shoulder Strength Shoulder Manual Muscle Testing Right Comments Deferred testing due to recent surgery. PT-OP-Q Treatments Start: 01/11/24 18:16 Freq: Status: Active Protocol: Document 02/05/24 11:37 SW (Rec: 02/05/24 12:51 SW [id number]) Therapeutic Exercises Supine Exercises PROM Supine Exercise Name PROM ER to neutral- verbal review only Side right Equipment Used Cane, 2 pillows support under R arm, double pillow under head Comments cues for setup, passive ROM only, cued for breathwork Sitting Exercises Finger ROM Sitting Exercise Name Pt declined printed HO Shoulder shrugs Sitting Exercise Name Reveiwed Side bilateral Reps/Minutes 1 SH/2 SR Scapular retraction Sitting Exercise Name verbal review Table slides Sitting Exercise Name PROM (forward SL, DL) : Flex training of max 90 deg's Side right Equipment Used Pt demonstrated good carryover PROM and precautions, declined printed HO Comments Extra time for set up, cued for staying within more comfortable range Manual Therapy Treatment Consent Patient gave verbal consent for manual Yes treatment Soft Tissue Mobilization R upper shoulder Body Location R UT, C/S paraspinals Mobilization Type Strumming,Trigger Point Release Intensity/Depth Moderate Body Position Sitting Comments TrP at Supraspinatus. Strumming at C/S paraspinals. R Shoulder scar Body Location R anterior shoulder Mobilization Type Other Intensity/Depth Superficial Body Position Sitting Comments Superficial scar mob. I/S pt in self scar mob in areas of full healing. Self-Care/Home Management Treatment Education Patient Education Home Exercise Program,Joint Protection,Pain Management, Posture,Safety Other Education Pt education for exercises. Pt education on precautions and for sling use. Further education on modalities, trialed heat this session for cervical/UT tension to relax muscles. Edema management. PT-OP-R Modalities Start: 01/11/24 18:16 Freq: Status: Active Protocol: Document 02/05/24 11:37 SW (Rec: 02/05/24 17:01 SW [id number]) Hot Pack/Cold Pack Treatment MHP Location Cervical/upper shoulder Patient Position Sitting Patient Tolerance Good Comments zayas within reach of VAISHALI RUE positioned with pillows, pt reported good tolerance, layered with towels/MHP cover, x15 min PT-OP-T Assessment and Plan Start: 01/11/24 18:16 Freq: Status: Active Protocol: Document 02/05/24 11:37 SW (Rec: 02/05/24 12:51 SW [id number]) Physical Therapy Assessment Goals Three Impairment Decreased R shoulder strength limited by TSA protocol STG Duration 03/07/24 Client Resolution Specialist Goal (LTG) Pt will be able to hang a shirt up overhead. LTG Duration 04/18/24 Two Impairment Decreased functional R shoulder AROM Short Term Goal (STG) Pt will be able to relieve his constant and annoying R shoulder pain (rated 3/10) to tolerate sleeping in his bed at night. STG Duration 03/07/24 Mcfp Goal (LTG) Pt will be able to scatch his head. LTG Duration 04/18/24 One Impairment Pt lacks appropriate self care HEP. Short Term Goal (STG) Pt will be educated in proper sitting/standing posture and self care pain management ( modalities and positioning). and education of significant other to assist pt in HEP as needed. 01/31/24: Pt education in proper sitting posture, pt education on modalities for pain, sleep positioning 02/05/24: Pt education in posture, breathwork for decreased cervical tension STG Duration 03/07/24 (progressing 01/31/24 ) Mcfp Goal (LTG) Pt will be independent and consistent in an effective self care HEP for progressive R shoulder ROM and when appropriate strengthening. 01/31/24: Table slides(passive R shoulder flex, less than 90 degrees), Finger AROM 02/05/24: Pt education on precautions LTG Duration 04/18/24 Assessment Summary Assessment Pt 1 day short of 5 wks po. Reviewed pt protocol and pt precautions for carryover and to support R shoulder. Session focused on manual therapy to decrease discomfort and tension in cervical musculature, palpable decrease in tension post though not resolved this session, pt may benefit continued manual work next session to further decrease myofascial restrictions and for symptom relief, especially in UT/ Supraspinatus. Ended session with heat to cervical/UT mms, pt reported good feedback, beneficial for symptoms. Plan to continue within pt protocol . Physical Therapy Plan Frequency and Duration Frequency of Treatment 2x/Week Duration of treatment (weeks) 12 Plan of Care Start Date 01/24/24 Plan of Care End Date 04/18/24 Therapeutic Interventions Therapeutic Interventions Home Exercise Program,Manual Therapy,Self-Care/Home Management,Soft Tissue Mobilization,Taping, Therapeutic Activities, Therapeutic Exercises Modalities Cold Pack/Ice Massage,Electric Stimulation,Hot Packs Next Visit Focus/Plan Next Note Type Treatment Note Next Visit Plan Continue STM for pt symptom management and to further decrease tension in soft tissues, further followup on MHP tolerance next sesion Next: MMT strength or L shoulder/elbow/wrist/fingers. Start with Codman's warm up. Educate in proper standing posture. Continued Scar mobilization as appropriate. Monitor for proper mvmt for donning/ doffing sling. Per protocol: PROM flex, ER to neutral; STM for pain management. End: Cold pack with elevation of arm if pt requests. POC: Rehab per protocol of R TSA w/tenodesis of Long Head of Biceps Rpr. Therapeutic Ex (when appropriate strengthening, ROM), Therapeutic Activity (posture and, manual therapy (STM), Pt Education (HEP,). Modalities as needed (cold pack, MHP, E stim
--- NOTE | 2024-02-07 16:12 | PT.OTN ---
Current Diagnoses Primary osteoarthritis, right shoulder (02/07/24) Stiffness of right shoulder, not elsewhere classified (02/07/24) Muscle weakness (generalized) (02/07/24) Physical Therapy Treatment Note PT-OP-A Visit Information Start: 01/11/24 18:16 Freq: Status: Active Protocol: Document 02/07/24 12:18 LRN (Rec: 02/07/24 13:05 LRN [id number]) Out-Patient Physical Therapy Visit Information Visit Information Visit Type Treatment Note Visit Note Guido Will be in [facility], [place] : 03/06/24-04/13/24. Visit Start Time 12:17 Visit Stop Time 13:01 Visit Number 06/30 Evaluation Information Evaluation Date 01/24/24 Precautions Precautions R total shoulder arthroplasty, tenodesis of Long Head of Biceps. NWBing R UE. Sling at all times (6 wks), removal 3 times a day to move elbow wrist, fingers. PROM only: IR to body, ER to 0 deg's, FF to 90 deg's ABD to 0 deg's, arm in neutral, NO ER of arm. PT-OP-B Current Condition Start: 01/11/24 18:16 Freq: Status: Active Protocol: Document 01/24/24 13:51 LRN (Rec: 01/24/24 14:43 LRN [id number]) Current Condition History of Current Condition Onset Date Jan 02, 2024 Current Complaints Annoying pain at the shoulder and incision. R neck is tight wearing sling History of Current Condition Pt reports 3 wks ago (on Sun) undergoing an elective surgery of R shoulder GHJ arthroplasty due to arthritis, attending with a written protocol in hand. Pt is R hand dominant. He reports being taught previously Codman 's exercise (50x each direction) and table slides forward and to the side. After wearing sling 4-5 hrs he has tightness of the neck. States HERNÁNDEZ told him to wear the sling to make him comfortable . Wears when going out of the house but removes it when sitting. 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 He was hoping to be gone for 6 wks towards the end of January, but is willing to stay around if needed for his rehab. Future Testing and Treatments Planned Feb 11 is f/u appt. Treatment Goals Patient/Caregiver Goals Pt goals: Be able to scatch his head. Be able to hang a shirt up overhead. Relieve R shouulder pain that was constant and annoying. Consistent with a HEP. Personal Factors Other Personal Factors That May Effect Arthritic back pain. R Therapy/Recovery shoulder arthroscopic surgery 30-40 yrs ago and at age 19. PT-OP-C Subjective Start: 01/11/24 18:16 Freq: Status: Active Protocol: Document 02/07/24 12:18 LRN (Rec: 02/07/24 13:05 LRN [id number]) OP-PT Subjective Patient Comments Patient Comments 5 wks post op. No concerns wtih R shoulder. PT-OP-H Neuro Start: 01/11/24 18:16 Freq: Status: Active Protocol: Document 01/24/24 13:51 LRN (Rec: 01/24/24 14:43 LRN [id number]) Sensation Evaluation Gross Sensation Gross Sensation WNL PT-OP-J Posture/Palpation/Skin Start: 01/11/24 18:16 Freq: Status: Active Protocol: Document 01/24/24 13:51 LRN (Rec: 01/24/24 14:43 LRN [id number]) Posture Evaluation Position Standing Head/C-Spine Posture Forward Head Scapula Posture (R) Depressed Comments Posture Comments R shoulder low, decreased thoracic and lumbar curvature. Palpation Assessment Location R shoulder Palpation Location Anterior lateral chest in location of scar. Palpation Findings Soft Tissue Tightness, Tenderness Palpation Details Atrophy of perscapular muscles and mild increased R arm/hand . PT-OP-K Range of Motion Start: 01/11/24 18:16 Freq: Status: Active Protocol: Document 02/07/24 12:18 LRN (Rec: 02/07/24 13:05 LRN [id number]) Shoulder Goniometric Range of Motion Shoulder Right Passive Shoulder ROM WFL No Testing Position Supine Flexion 98 External Rotation at 0 degrees Abduction 0 Comments Sitting: PROM (table slide) Flexion is 87 deg's, after stretching 90 deg's. PT-OP-M Strength Start: 01/11/24 18:16 Freq: Status: Active Protocol: Document 01/24/24 13:51 LRN (Rec: 01/24/24 14:43 LRN [id number]) Shoulder Strength Shoulder Manual Muscle Testing Right Comments Deferred testing due to recent surgery. PT-OP-Q Treatments Start: 01/11/24 18:16 Freq: Status: Active Protocol: Document 02/07/24 12:18 LRN (Rec: 02/07/24 13:05 LRN [id number]) Therapeutic Exercises Sitting Exercises Finger ROM Sitting Exercise Name Flex/ext, Abd/add Side right Comments Issued HEP Shoulder ER hand on belly to neutral Sitting Exercise Name ER PROM w/wand Reps/Minutes 2' Table slides Sitting Exercise Name PROM (forward SL, DL) : Flex training of max 90 deg's Side right Equipment Used Pt demonstrated good carryover PROM and precautions, declined printed HO Comments Extra time for set up, cued for staying within more comfortable range Standing Exercises Codman's EX Standing Exercise Name R shoulder Codman's, warm up Side right Reps/Minutes 15x 2 each Self-Care/Home Management Treatment Activities Self-Care/Home Management Activities Issued & reviewed HEP: Finger flexion/ext, Finger AB/AD, and table slide flexion. PT-OP-R Modalities Start: 01/11/24 18:16 Freq: Status: Active Protocol: Document 02/05/24 11:37 SW (Rec: 02/05/24 17:01 SW [id number]) Hot Pack/Cold Pack Treatment MHP Location Cervical/upper shoulder Patient Position Sitting Patient Tolerance Good Comments zayas within reach of IGNACIA TOM positioned with pillows, pt reported good tolerance, layered with towels/MHP cover, x15 min PT-OP-T Assessment and Plan Start: 01/11/24 18:16 Freq: Status: Active Protocol: Document 02/07/24 12:18 LRN (Rec: 02/07/24 13:05 LRN [id number]) Physical Therapy Assessment Goals Three Impairment Decreased R shoulder strength limited by TSA protocol STG Duration 03/07/24 Restaurant Host/Hostess Goal (LTG) Pt will be able to hang a shirt up overhead. LTG Duration 04/18/24 Two Impairment Decreased functional R shoulder AROM Short Term Goal (STG) Pt will be able to relieve his constant and annoying R shoulder pain (rated 3/10) to tolerate sleeping in his bed at night. 02/07/24: No pain at rest, sleeping sometimes twingy sharp pain, rated 3-4/10. Sleeping in recliner. STG Duration 03/07/24 progressing 02/07/24 . Mcfp Goal (LTG) Pt will be able to scatch his head. LTG Duration 04/18/24 One Impairment Pt lacks appropriate self care HEP. Short Term Goal (STG) Pt will be educated in proper sitting/standing posture and self care pain management ( modalities and positioning). and education of significant other to assist pt in HEP as needed. 01/31/24: Pt education in proper sitting posture, pt education on modalities for pain, sleep positioning 02/05/24: Pt education in posture, breathwork for decreased cervical tension STG Duration 03/07/24 (progressing 01/31/24 ) Mcfp Goal (LTG) Pt will be independent and consistent in an effective self care HEP for progressive R shoulder ROM and when appropriate strengthening. 01/31/24: Table slides(passive R shoulder flex, less than 90 degrees), Finger AROM 02/05/24: Pt education on precautions. 02/07/24: HEP: Finger flexion/ext, Finger AB/AD, and table slide flexion. LTG Duration 04/18/24 progressed 02/07/24 Assessment Summary Assessment 63 yo male ~5 wks po R TSA and tenodesis of Long Head of Biceps (late phase of protocol (4-6 wks). He is wearing a sling for his R shoulder and was able to remove sling properly. His passive shoulder flex (table slide) was limited at 87 deg's; pt was able to achieve 9 deg's by end of exercise. His ER is to neutral (0 deg's) without pain. Pt is adhering to the no ABD precaution although he states he was told to do it as table slide. Pt is expected to be cleared for AAROM and active use of arm at his 6 wk follow up visit next week. Physical Therapy Plan Frequency and Duration Frequency of Treatment 2x/Week Duration of treatment (weeks) 12 Plan of Care Start Date 01/24/24 Plan of Care End Date 04/18/24 Next Visit Focus/Plan Next Note Type Treatment Note Next Visit Plan Next: Progress as MD requests at his f/u visit per protocol . Continue STM for pt symptom management and to further decrease tension in soft tissues, further followup on MHP tolerance next sesion Next: Start with Codman's warm up. Educate in proper standing posture. Continued Scar mobilization as appropriate. MMT wrist/fingers, hold on L shoulder and biceps. Progress Per protocol: PROM flex, ER to neutral; STM for pain management. End: Cold pack with elevation of arm if pt requests. POC: Rehab per protocol of R TSA w/tenodesis of Long Head of Biceps Rpr. Therapeutic Ex (when appropriate strengthening, ROM), Therapeutic Activity (posture and, manual therapy (STM), Pt Education (HEP,). Modalities as needed (cold pack, MHP, E stim
--- NOTE | 2024-02-14 15:44 | PT.OTN ---
Current Diagnoses Primary osteoarthritis, right shoulder (02/14/24) Stiffness of right shoulder, not elsewhere classified (02/14/24) Muscle weakness (generalized) (02/14/24) Physical Therapy Treatment Note PT-OP-A Visit Information Start: 01/11/24 18:16 Freq: Status: Active Protocol: Document 02/14/24 14:38 TS (Rec: 02/14/24 15:41 TS [id number]) Out-Patient Physical Therapy Visit Information Visit Information Visit Type Treatment Note Visit Note Guido Will be in [place], [place] : 03/06/24-04/13/24. Medbridge:[id number] Visit Start Time 14:35 Visit Stop Time 15:15 Visit Number 07/31 Number of HEALTH SERVICES COORDINATOR Visits 1 Evaluation Information Evaluation Date 01/24/24 Precautions Precautions R total shoulder arthroplasty, tenodesis of Long Head of Biceps. NWBing R UE. Sling at all times (6 wks), removal 3 times a day to move elbow wrist, fingers. PROM only: IR to body, ER to 0 deg's, FF to 90 deg's ABD to 0 deg's, arm in neutral, NO ER of arm. PT-OP-B Current Condition Start: 01/11/24 18:16 Freq: Status: Active Protocol: Document 01/24/24 13:51 LRN (Rec: 01/24/24 14:43 LRN [id number]) Current Condition History of Current Condition Onset Date Jan 02, 2024 Current Complaints Annoying pain at the shoulder and incision. R neck is tight wearing sling History of Current Condition Pt reports 3 wks ago (on Sun) undergoing an elective surgery of R shoulder GHJ arthroplasty due to arthritis, attending with a written protocol in hand. Pt is R hand dominant. He reports being taught previously Codman 's exercise (50x each direction) and table slides forward and to the side. After wearing sling 4-5 hrs he has tightness of the neck. States HERNÁNDEZ told him to wear the sling to make him comfortable . Wears when going out of the house but removes it when sitting. 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 He was hoping to be gone for 6 wks towards the end of January, but is willing to stay around if needed for his rehab. Future Testing and Treatments Planned Feb 11 is f/u appt. Treatment Goals Patient/Caregiver Goals Pt goals: Be able to scatch his head. Be able to hang a shirt up overhead. Relieve R shouulder pain that was constant and annoying. Consistent with a HEP. Personal Factors Other Personal Factors That May Effect Arthritic back pain. R Therapy/Recovery shoulder arthroscopic surgery 30-40 yrs ago and at age 19. PT-OP-C Subjective Start: 01/11/24 18:16 Freq: Status: Active Protocol: Document 02/14/24 14:38 TS (Rec: 02/14/24 15:41 TS [id number]) OP-PT Subjective Patient Comments Patient Comments 6 weeks post op. Pt is out of sling. Discomfort is minimal. PT-OP-H Neuro Start: 01/11/24 18:16 Freq: Status: Active Protocol: Document 01/24/24 13:51 LRN (Rec: 01/24/24 14:43 LRN [id number]) Sensation Evaluation Gross Sensation Gross Sensation WNL PT-OP-J Posture/Palpation/Skin Start: 01/11/24 18:16 Freq: Status: Active Protocol: Document 01/24/24 13:51 LRN (Rec: 01/24/24 14:43 LRN [id number]) Posture Evaluation Position Standing Head/C-Spine Posture Forward Head Scapula Posture (R) Depressed Comments Posture Comments R shoulder low, decreased thoracic and lumbar curvature. Palpation Assessment Location R shoulder Palpation Location Anterior lateral chest in location of scar. Palpation Findings Soft Tissue Tightness, Tenderness Palpation Details Atrophy of perscapular muscles and mild increased R arm/hand . PT-OP-K Range of Motion Start: 01/11/24 18:16 Freq: Status: Active Protocol: Document 02/07/24 12:18 LRN (Rec: 02/07/24 13:05 LRN [id number]) Shoulder Goniometric Range of Motion Shoulder Right Passive Shoulder ROM WFL No Testing Position Supine Flexion 98 External Rotation at 0 degrees Abduction 0 Comments Sitting: PROM (table slide) Flexion is 87 deg's, after stretching 90 deg's. PT-OP-M Strength Start: 01/11/24 18:16 Freq: Status: Active Protocol: Document 01/24/24 13:51 LRN (Rec: 01/24/24 14:43 LRN [id number]) Shoulder Strength Shoulder Manual Muscle Testing Right Comments Deferred testing due to recent surgery. PT-OP-Q Treatments Start: 01/11/24 18:16 Freq: Status: Active Protocol: Document 02/14/24 14:38 TS (Rec: 02/14/24 15:41 TS [id number]) Cardio Equipment Upper Body Ergometer (UBE) Duration (Minutes) 8 Seat Position 17 Height 2.5 Other arms 1.5 Therapeutic Exercises Sitting Exercises Johny's Sitting Exercise Name flex, ABD Reps/Minutes 3' Standing Exercises Horizontla ABD Equipment Used yellow Reps/Minutes x10 Comments cues for pain free range Shldr Iso's Standing Exercise Name External, internal, extension, flexion Reps/Minutes x10, 3-5 sec hold Manual Therapy Treatment Joint Mobilizations GH Joint Distraction Joint GH Grade II Reps/Duration 2' Scapula Joint Scap Direction pro/retract, depression/ elevation Grade II Body Position Sidelying Reps/Duration 6' PT-OP-R Modalities Start: 01/11/24 18:16 Freq: Status: Active Protocol: Document 02/05/24 11:37 (Rec: 02/05/24 17:01 SW [id number]) Hot Pack/Cold Pack Treatment MHP Location Cervical/upper shoulder Patient Position Sitting Patient Tolerance Good Comments zayas within reach of VAISHALI RUE positioned with pillows, pt reported good tolerance, layered with towels/MHP cover, x15 min PT-OP-T Assessment and Plan Start: 01/11/24 18:16 Freq: Status: Active Protocol: Document 02/14/24 14:38 TS (Rec: 02/14/24 15:41 TS [id number]) Physical Therapy Assessment Goals Three Impairment Decreased R shoulder strength limited by TSA protocol STG Duration 03/07/24 Custodial Goal (LTG) Pt will be able to hang a shirt up overhead. LTG Duration 04/18/24 Two Impairment Decreased functional R shoulder AROM Short Term Goal (STG) Pt will be able to relieve his constant and annoying R shoulder pain (rated 3/10) to tolerate sleeping in his bed at night. 02/07/24: No pain at rest, sleeping sometimes twingy sharp pain, rated 3-4/10. Sleeping in recliner. STG Duration 03/07/24 progressing 02/07/24 . Custodial Goal (LTG) Pt will be able to scatch his head. LTG Duration 04/18/24 One Impairment Pt lacks appropriate self care HEP. Short Term Goal (STG) Pt will be educated in proper sitting/standing posture and self care pain management ( modalities and positioning). and education of significant other to assist pt in HEP as needed. 01/31/24: Pt education in proper sitting posture, pt education on modalities for pain, sleep positioning 02/05/24: Pt education in posture, breathwork for decreased cervical tension STG Duration 03/07/24 (progressing 01/31/24 ) Algebraist Goal (LTG) Pt will be independent and consistent in an effective self care HEP for progressive R shoulder ROM and when appropriate strengthening. 01/31/24: Table slides(passive R shoulder flex, less than 90 degrees), Finger AROM 02/05/24: Pt education on precautions. 02/07/24: HEP: Finger flexion/ext, Finger AB/AD, and table slide flexion. 02/14/24: Shoulder Iso's LTG Duration 04/18/24 progressed 02/07/24 Assessment Summary Assessment Pt is now 6 weeks post-op. He tolerated BUE well, feels good stretch in R shoulder. Progressed protocol this session. Pt progressed to shoulder iso's(added to HEP). PROM 90D of flex, ~85D of ABD. Initiated gh distraction/scpa mobility and johny's. Pt cued to maintain pain free ROM . Physical Therapy Plan Next Visit Focus/Plan Next Note Type Treatment Note Next Visit Plan Next: continue early phase 2 protocol. Johny's, BUE, iso's , scap strength, horizontal abd.
--- NOTE | 2024-02-19 16:00 | PT.OTN ---
Current Diagnoses Primary osteoarthritis, right shoulder (02/19/24) Stiffness of right shoulder, not elsewhere classified (02/19/24) Muscle weakness (generalized) (02/19/24) Physical Therapy Treatment Note PT-OP-A Visit Information Start: 01/11/24 18:16 Freq: Status: Active Protocol: Document 02/19/24 09:55 LRN (Rec: 02/19/24 10:50 LRN [id number]) Out-Patient Physical Therapy Visit Information Visit Information Visit Type Treatment Note Visit Note Guido Will be in [place], [place] : 03/09/24-04/13/24. Visit Start Time 09:55 Visit Stop Time 10:33 Visit Number 08/30 Evaluation Information Evaluation Date 01/24/24 Precautions Precautions R total shoulder arthroplasty, tenodesis of Long Head of Biceps. NWBing R UE. Sling at all times (6 wks), removal 3 times a day to move elbow wrist, fingers. PROM only: IR to body, ER to 0 deg's, FF to 90 deg's ABD to 0 deg's, arm in neutral, NO ER of arm. PT-OP-B Current Condition Start: 01/11/24 18:16 Freq: Status: Active Protocol: Document 01/24/24 13:51 LRN (Rec: 01/24/24 14:43 LRN [id number]) Current Condition History of Current Condition Onset Date Jan 02, 2024 Current Complaints Annoying pain at the shoulder and incision. R neck is tight wearing sling History of Current Condition Pt reports 3 wks ago (on Sun) undergoing an elective surgery of R shoulder GHJ arthroplasty due to arthritis, attending with a written protocol in hand. Pt is R hand dominant. He reports being taught previously Codman 's exercise (50x each direction) and table slides forward and to the side. After wearing sling 4-5 hrs he has tightness of the neck. States HERNÁNDEZ told him to wear the sling to make him comfortable . Wears when going out of the house but removes it when sitting. 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 He was hoping to be gone for 6 wks towards the end of January, but is willing to stay around if needed for his rehab. Future Testing and Treatments Planned Feb 11 is f/u appt. Treatment Goals Patient/Caregiver Goals Pt goals: Be able to scatch his head. Be able to hang a shirt up overhead. Relieve R shouulder pain that was constant and annoying. Consistent with a HEP. Personal Factors Other Personal Factors That May Effect Arthritic back pain. R Therapy/Recovery shoulder arthroscopic surgery 30-40 yrs ago and at age 19. PT-OP-C Subjective Start: 01/11/24 18:16 Freq: Status: Active Protocol: Document 02/19/24 09:55 LRN (Rec: 02/19/24 10:50 LRN [id number]) OP-PT Subjective Patient Comments Patient Comments States shoulder is feeling pretty good. Still has pain. Saw last week and he gave similar stuff (cane ex's, and sidelie IR/ER) PT-OP-H Neuro Start: 01/11/24 18:16 Freq: Status: Active Protocol: Document 01/24/24 13:51 LRN (Rec: 01/24/24 14:43 LRN [id number]) Sensation Evaluation Gross Sensation Gross Sensation WNL PT-OP-J Posture/Palpation/Skin Start: 01/11/24 18:16 Freq: Status: Active Protocol: Document 01/24/24 13:51 LRN (Rec: 01/24/24 14:43 LRN [id number]) Posture Evaluation Position Standing Head/C-Spine Posture Forward Head Scapula Posture (R) Depressed Comments Posture Comments R shoulder low, decreased thoracic and lumbar curvature. Palpation Assessment Location R shoulder Palpation Location Anterior lateral chest in location of scar. Palpation Findings Soft Tissue Tightness, Tenderness Palpation Details Atrophy of perscapular muscles and mild increased R arm/hand . PT-OP-K Range of Motion Start: 01/11/24 18:16 Freq: Status: Active Protocol: Document 02/07/24 12:18 LRN (Rec: 02/07/24 13:05 LRN [id number]) Shoulder Goniometric Range of Motion Shoulder Right Passive Shoulder ROM WFL No Testing Position Supine Flexion 98 External Rotation at 0 degrees Abduction 0 Comments Sitting: PROM (table slide) Flexion is 87 deg's, after stretching 90 deg's. PT-OP-M Strength Start: 01/11/24 18:16 Freq: Status: Active Protocol: Document 01/24/24 13:51 LRN (Rec: 01/24/24 14:43 LRN [id number]) Shoulder Strength Shoulder Manual Muscle Testing Right Comments Deferred testing due to recent surgery. PT-OP-Q Treatments Start: 01/11/24 18:16 Freq: Status: Active Protocol: Document 02/19/24 09:55 LRN (Rec: 02/19/24 10:50 LRN [id number]) Cardio Equipment Upper Body Ergometer (UBE) Duration (Minutes) 10 RPM 90 Seat Position 15 Height 2.5 Other arms 1.5 Therapeutic Exercises Supine Exercises Scapular depression/elevation Side bilateral Reps/Minutes 10x Comments Phys cuing assist to start AAROM R shoulder Supine Exercise Name Flex: holding wrist w/opp arm; AB-PT asst'd. Side right Reps/Minutes 4' Comments AB-self asst'd with cane. Sidelying Exercises Shoulder ER/IR stretch' Sidelying Exercise Name Shoulder at 45 deg's AB: Self assisted ER/IR stretch Side right Reps/Minutes 4' Sitting Exercises Temi's Sitting Exercise Name flex, ABD Reps/Minutes 10' Scapular retraction Side bilateral Reps/Minutes 10x Comments Cued for scapular direction Standing Exercises Horizontla ABD Standing Exercise Name Shoulder AB/Flex Equipment Used yellow Reps/Minutes x10 Comments cues for pain free range PT-OP-R Modalities Start: 01/11/24 18:16 Freq: Status: Active Protocol: Document 02/05/24 11:37 SW (Rec: 02/05/24 17:01 SW [id number]) Hot Pack/Cold Pack Treatment MHP Location Cervical/upper shoulder Patient Position Sitting Patient Tolerance Good Comments zayas within reach of LUE, RUE positioned with pillows, pt reported good tolerance, layered with towels/MHP cover, x15 min PT-OP-T Assessment and Plan Start: 01/11/24 18:16 Freq: Status: Active Protocol: Document 02/19/24 09:55 LRN (Rec: 02/19/24 10:50 LRN [id number]) Physical Therapy Assessment Goals Three Impairment Decreased R shoulder strength limited by TSA protocol STG Duration 03/07/24 Prison Goal (LTG) Pt will be able to hang a shirt up overhead. LTG Duration 04/18/24 Two Impairment Decreased functional R shoulder AROM Short Term Goal (STG) Pt will be able to relieve his constant and annoying R shoulder pain (rated 3/10) to tolerate sleeping in his bed at night. 02/07/24: No pain at rest, sleeping sometimes twingy sharp pain, rated 3-4/10. Sleeping in recliner. STG Duration 03/07/24 progressing 02/07/24 . Prison Goal (LTG) Pt will be able to scatch his head. LTG Duration 04/18/24 One Impairment Pt lacks appropriate self care HEP. Short Term Goal (STG) Pt will be educated in proper sitting/standing posture and self care pain management ( modalities and positioning). and education of significant other to assist pt in HEP as needed. 01/31/24: Pt education in proper sitting posture, pt education on modalities for pain, sleep positioning 02/05/24: Pt education in posture, breathwork for decreased cervical tension STG Duration 03/07/24 progressing (needs address of standing posture) Prison Goal (LTG) Pt will be independent and consistent in an effective self care HEP for progressive R shoulder ROM and when appropriate strengthening. 01/31/24: Table slides(passive R shoulder flex, less than 90 degrees), Finger AROM 02/05/24: Pt education on precautions. 02/07/24: HEP: Finger flexion/ext, Finger AB/AD, and table slide flexion. 02/14/24: Shoulder Iso's LTG Duration 04/18/24 progressed 02/07/24 . Assessment Summary Assessment Pt is 7 wks s/p R TSA and tenodesis of Long Head of Biceps. He appears to have met R shoulder PROM criteria ( in plane or scapula: 90? Flex , 45? ER, 70? IR measured at 30? of AB) to progress to phase II of protocol. He is most restricted with IR; therefore will monitor. Physical Therapy Plan Frequency and Duration Frequency of Treatment 2x/Week Duration of treatment (weeks) 12 Plan of Care Start Date 01/24/24 Plan of Care End Date 04/18/24 Next Visit Focus/Plan Next Note Type Treatment Note Next Visit Plan Measure R shoulder IR at 30 deg's AB, if <30?, focus on improving IR PROM and cont gradual ROM and may do very gentle grade I oscillations; otherwise cont early phase II protocol. POC: Rehab per protocol of R TSA w/tenodesis of Long Head of Biceps Rpr. Therapeutic Ex (when appropriate strengthening, ROM), Therapeutic Activity (posture and, manual therapy (STM), Pt Education (HEP,). Modalities as needed (cold pack, MHP, E stim
--- NOTE | 2024-02-21 11:47 | PT.OTN ---
Current Diagnoses Primary osteoarthritis, right shoulder (02/21/24) Stiffness of right shoulder, not elsewhere classified (02/21/24) Muscle weakness (generalized) (02/21/24) Physical Therapy Treatment Note PT-OP-A Visit Information Start: 01/11/24 18:16 Freq: Status: Active Protocol: Document 02/21/24 09:54 LRN (Rec: 02/21/24 10:46 LRN [id number]) Out-Patient Physical Therapy Visit Information Visit Information Visit Type Treatment Note Visit Note Guido Will be in [place], [place] : 03/09/24-04/13/24. Visit Start Time 09:54 Visit Stop Time 10:38 Visit Number 09/30 6 after PN Evaluation Information Evaluation Date 01/24/24 Precautions Precautions R total shoulder arthroplasty, tenodesis of Long Head of Biceps. NWBing R UE. Sling at all times (6 wks), removal 3 times a day to move elbow wrist, fingers. PROM only: IR to body, ER to 0 deg's, FF to 90 deg's ABD to 0 deg's, arm in neutral, NO ER of arm. PT-OP-B Current Condition Start: 01/11/24 18:16 Freq: Status: Active Protocol: Document 01/24/24 13:51 LRN (Rec: 01/24/24 14:43 LRN [id number]) Current Condition History of Current Condition Onset Date Jan 02, 2024 Current Complaints Annoying pain at the shoulder and incision. R neck is tight wearing sling History of Current Condition Pt reports 3 wks ago (on Sun) undergoing an elective surgery of R shoulder GHJ arthroplasty due to arthritis, attending with a written protocol in hand. Pt is R hand dominant. He reports being taught previously Codman 's exercise (50x each direction) and table slides forward and to the side. After wearing sling 4-5 hrs he has tightness of the neck. States HERNÁNDEZ told him to wear the sling to make him comfortable . Wears when going out of the house but removes it when sitting. 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 He was hoping to be gone for 6 wks towards the end of January, but is willing to stay around if needed for his rehab. Future Testing and Treatments Planned Feb 11 is f/u appt. Treatment Goals Patient/Caregiver Goals Pt goals: Be able to scatch his head. Be able to hang a shirt up overhead. Relieve R shouulder pain that was constant and annoying. Consistent with a HEP. Personal Factors Other Personal Factors That May Effect Arthritic back pain. R Therapy/Recovery shoulder arthroscopic surgery 30-40 yrs ago and at age 19. PT-OP-C Subjective Start: 01/11/24 18:16 Freq: Status: Active Protocol: Document 02/21/24 09:54 LRN (Rec: 02/21/24 10:46 LRN [id number]) OP-PT Subjective Patient Comments Patient Comments Getting better each day. Pt is sleeping in bed and can lie his R arm by his side without pain. He reports being able to sleep through the night. PT-OP-H Neuro Start: 01/11/24 18:16 Freq: Status: Active Protocol: Document 01/24/24 13:51 LRN (Rec: 01/24/24 14:43 LRN [id number]) Sensation Evaluation Gross Sensation Gross Sensation WNL PT-OP-J Posture/Palpation/Skin Start: 01/11/24 18:16 Freq: Status: Active Protocol: Document 01/24/24 13:51 LRN (Rec: 01/24/24 14:43 LRN [id number]) Posture Evaluation Position Standing Head/C-Spine Posture Forward Head Scapula Posture (R) Depressed Comments Posture Comments R shoulder low, decreased thoracic and lumbar curvature. Palpation Assessment Location R shoulder Palpation Location Anterior lateral chest in location of scar. Palpation Findings Soft Tissue Tightness, Tenderness Palpation Details Atrophy of perscapular muscles and mild increased R arm/hand . PT-OP-K Range of Motion Start: 01/11/24 18:16 Freq: Status: Active Protocol: Document 02/07/24 12:18 LRN (Rec: 02/07/24 13:05 LRN [id number]) Shoulder Goniometric Range of Motion Shoulder Right Passive Shoulder ROM WFL No Testing Position Supine Flexion 98 External Rotation at 0 degrees Abduction 0 Comments Sitting: PROM (table slide) Flexion is 87 deg's, after stretching 90 deg's. PT-OP-M Strength Start: 01/11/24 18:16 Freq: Status: Active Protocol: Document 01/24/24 13:51 LRN (Rec: 01/24/24 14:43 LRN [id number]) Shoulder Strength Shoulder Manual Muscle Testing Right Comments Deferred testing due to recent surgery. PT-OP-Q Treatments Start: 01/11/24 18:16 Freq: Status: Active Protocol: Document 02/21/24 09:54 LRN (Rec: 02/21/24 10:46 LRN [id number]) Cardio Equipment Upper Body Ergometer (UBE) Duration (Minutes) 10 RPM 90 Seat Position 15 Height 2.5 Other arms 1.5 Therapeutic Exercises Supine Exercises AAROM R shoulder Supine Exercise Name Flex: holding wrist w/opp arm; AB-PT asst'd. Side right Reps/Minutes 4' Comments AB-self asst'd with cane. Sidelying Exercises Shoulder ER/IR stretch' Sidelying Exercise Name Shoulder at 45 deg's AB: Self assisted ER/IR stretch Side right Reps/Minutes 4' Sitting Exercises Scap protract/retract Sitting Exercise Name R arm on plinth for scap protract/retract. Side right Reps/Minutes 6x Comments Physical cuing at scapula Bicep curl Sitting Exercise Name Jordon UE lift of 1@ wgt Side bilateral Reps/Minutes 30x w/o rest. Comments Cued to use both hands & at home progress to R UE lift Temi's Sitting Exercise Name flex, ABD Side right Reps/Minutes 10' Comments very small oscillations at end ROM. Shoulder ER hand on belly to neutral Side right Reps/Minutes 2' Standing Exercises Horizontla ABD Standing Exercise Name Shoulder AB/Flex Equipment Used Dowel stick Reps/Minutes 6' Comments Manual assit for improxing scapulohumeral rhythm Shldr Iso's Standing Exercise Name External, internal, extension, flexion Equipment Used Towel roll for ext/flex press Reps/Minutes x10, 3-5 sec hold Comments Cued to retract scapula w/fwd press. PT-OP-R Modalities Start: 01/11/24 18:16 Freq: Status: Active Protocol: Document 02/05/24 11:37 (Rec: 02/05/24 17:01 SW [id number]) Hot Pack/Cold Pack Treatment MHP Location Cervical/upper shoulder Patient Position Sitting Patient Tolerance Good Comments zayas within reach of IGNACIA TOM positioned with pillows, pt reported good tolerance, layered with towels/MHP cover, x15 min PT-OP-T Assessment and Plan Start: 01/11/24 18:16 Freq: Status: Active Protocol: Document 02/21/24 09:54 LRN (Rec: 02/21/24 10:46 LRN [id number]) Physical Therapy Assessment Goals Three Impairment Decreased R shoulder strength limited by TSA protocol STG Duration 03/07/24 Belly Dump Driver Goal (LTG) Pt will be able to hang a shirt up overhead. LTG Duration 04/18/24 Two Impairment Decreased functional R shoulder AROM Short Term Goal (STG) Pt will be able to relieve his constant and annoying R shoulder pain (rated 3/10) to tolerate sleeping in his bed at night. 02/07/24: No pain at rest, sleeping sometimes twingy sharp pain, rated 3-4/10. Sleeping in recliner. STG Duration 03/07/24 progressing 02/07/24 . Belly Dump Driver Goal (LTG) Pt will be able to scatch his head. LTG Duration 04/18/24 One Impairment Pt lacks appropriate self care HEP. Short Term Goal (STG) Pt will be educated in proper sitting/standing posture and self care pain management ( modalities and positioning). and education of significant other to assist pt in HEP as needed. 01/31/24: Pt education in proper sitting posture, pt education on modalities for pain, sleep positioning 02/05/24: Pt education in posture, breathwork for decreased cervical tension STG Duration 03/07/24 progressing (needs address of standing posture) Fdc Goal (LTG) Pt will be independent and consistent in an effective self care HEP for progressive R shoulder ROM and when appropriate strengthening. 01/31/24: Table slides(passive R shoulder flex, less than 90 degrees), Finger AROM 02/05/24: Pt education on precautions. 02/07/24: HEP: Finger flexion/ext, Finger AB/AD, and table slide flexion. 02/14/24: Shoulder Iso's LTG Duration 04/18/24 progressed 02/07/24 . Assessment Summary Assessment Pt is 7 wks, 1 day s/p R TSA and tenodesis of Long Head of Biceps. Pt has 60-65 deg's of R shoulder IR (@30 deg's AB in scapular plane). L side as restricted with sidelie IR stretch; therefore stretch in supine better tells difference in ROM from R to L. Pt having much less pain and greater ease of mvmt with R UE . Physical Therapy Plan Frequency and Duration Frequency of Treatment 2x/Week Duration of treatment (weeks) 12 Plan of Care Start Date 01/24/24 Plan of Care End Date 04/18/24 Next Visit Focus/Plan Next Note Type Treatment Note Next Visit Plan ROM focus on improving R shoulder IR (at 30 deg's AB in scapular plane) and scap stabilization strength. Cont gradual ROM, and WAIT to do very gentle grade I oscillations until IR ROM met (per protocol); otherwise cont early phase II protocol. POC: Rehab per protocol of R TSA w/tenodesis of Long Head of Biceps Rpr. Therapeutic Ex (when appropriate strengthening, ROM), Therapeutic Activity (posture and, manual therapy (STM), Pt Education (HEP,). Modalities as needed (cold pack, MHP, E stim
--- NOTE | 2024-02-26 10:53 | PT.OTN ---
Current Diagnoses Primary osteoarthritis, right shoulder (02/26/24) Stiffness of right shoulder, not elsewhere classified (02/26/24) Muscle weakness (generalized) (02/26/24) Physical Therapy Treatment Note PT-OP-A Visit Information Start: 01/11/24 18:16 Freq: Status: Active Protocol: Document 02/26/24 09:50 SW (Rec: 02/26/24 10:48 SW [id number]) Out-Patient Physical Therapy Visit Information Visit Information Visit Type Treatment Note Visit Note Guido Will be in [place], [place] : 03/09/24-04/13/24. Visit Start Time 09:45 Visit Stop Time 10:30 Visit Number 10/31 7 after PN Precautions Precautions R total shoulder arthroplasty, tenodesis of Long Head of Biceps. NWBing R UE. Sling at all times (6 wks), removal 3 times a day to move elbow wrist, fingers. PROM only: IR to body, ER to 0 deg's, FF to 90 deg's ABD to 0 deg's, arm in neutral, NO ER of arm. PT-OP-B Current Condition Start: 01/11/24 18:16 Freq: Status: Active Protocol: Document 01/24/24 13:51 LRN (Rec: 01/24/24 14:43 LRN [id number]) Current Condition History of Current Condition Onset Date Jan 02, 2024 Current Complaints Annoying pain at the shoulder and incision. R neck is tight wearing sling History of Current Condition Pt reports 3 wks ago (on Sun) undergoing an elective surgery of R shoulder GHJ arthroplasty due to arthritis, attending with a written protocol in hand. Pt is R hand dominant. He reports being taught previously Codman 's exercise (50x each direction) and table slides forward and to the side. After wearing sling 4-5 hrs he has tightness of the neck. MD told him to wear the sling to make him comfortable . Wears when going out of the house but removes it when sitting. 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 He was hoping to be gone for 6 wks towards the end of January, but is willing to stay around if needed for his rehab. Future Testing and Treatments Planned Feb 11 is f/u appt. Treatment Goals Patient/Caregiver Goals Pt goals: Be able to scatch his head. Be able to hang a shirt up overhead. Relieve R shouulder pain that was constant and annoying. Consistent with a HEP. Personal Factors Other Personal Factors That May Effect Arthritic back pain. R Therapy/Recovery shoulder arthroscopic surgery 30-40 yrs ago and at age 19. PT-OP-C Subjective Start: 01/11/24 18:16 Freq: Status: Active Protocol: Document 02/26/24 09:50 SW (Rec: 02/26/24 10:48 SW [id number]) OP-PT Subjective Patient Comments Patient Comments Pt reports doing better each day, did something that caused pain yesterday, not sure what , feeling better today, just lasted a second. PT-OP-H Neuro Start: 01/11/24 18:16 Freq: Status: Active Protocol: Document 01/24/24 13:51 LRN (Rec: 01/24/24 14:43 LRN [id number]) Sensation Evaluation Gross Sensation Gross Sensation WNL PT-OP-J Posture/Palpation/Skin Start: 01/11/24 18:16 Freq: Status: Active Protocol: Document 01/24/24 13:51 LRN (Rec: 01/24/24 14:43 LRN [id number]) Posture Evaluation Position Standing Head/C-Spine Posture Forward Head Scapula Posture (R) Depressed Comments Posture Comments R shoulder low, decreased thoracic and lumbar curvature. Palpation Assessment Location R shoulder Palpation Location Anterior lateral chest in location of scar. Palpation Findings Soft Tissue Tightness, Tenderness Palpation Details Atrophy of perscapular muscles and mild increased R arm/hand . PT-OP-K Range of Motion Start: 01/11/24 18:16 Freq: Status: Active Protocol: Document 02/07/24 12:18 LRN (Rec: 02/07/24 13:05 LRN [id number]) Shoulder Goniometric Range of Motion Shoulder Right Passive Shoulder ROM WFL No Testing Position Supine Flexion 98 External Rotation at 0 degrees Abduction 0 Comments Sitting: PROM (table slide) Flexion is 87 deg's, after stretching 90 deg's. PT-OP-M Strength Start: 01/11/24 18:16 Freq: Status: Active Protocol: Document 01/24/24 13:51 LRN (Rec: 01/24/24 14:43 LRN [id number]) Shoulder Strength Shoulder Manual Muscle Testing Right Comments Deferred testing due to recent surgery. PT-OP-Q Treatments Start: 01/11/24 18:16 Freq: Status: Active Protocol: Document 02/26/24 09:50 SW (Rec: 02/26/24 10:48 [id number]) Therapeutic Exercises Sidelying Exercises Shoulder ER/IR stretch' Sidelying Exercise Name Shoulder at 45 deg's AB: Self assisted ER/IR stretch Side right Reps/Minutes 4' Sitting Exercises Bicep curl Sitting Exercise Name Jordon UE lift of 1@ wgt Side bilateral Reps/Minutes 30x w/o rest. Comments Cued to use both hands & at home progress to R UE lift Temi's Sitting Exercise Name flex, ABD Side right Reps/Minutes 10' Comments very small oscillations at end ROM. Standing Exercises Shldr IR/ER Standing Exercise Name Shoulder IR/ER Side right Resistance low lvl 1, min resist Reps/Minutes x10 Comments cues for gentle pain free, per protocol less than 45 d ER low resistance TB Horizontla ABD Standing Exercise Name Shoulder AB/Flex Equipment Used Dowel stick Reps/Minutes 6' Comments cues for lateral lean compensation Shldr Iso's Standing Exercise Name External, internal, extension, flexion Equipment Used Towel roll for ext/flex press Reps/Minutes x10, 3-5 sec hold Comments Cued to retract scapula w/fwd press. PT-OP-R Modalities Start: 01/11/24 18:16 Freq: Status: Active Protocol: Document 02/05/24 11:37 SW (Rec: 02/05/24 17:01 [id number]) Hot Pack/Cold Pack Treatment MHP Location Cervical/upper shoulder Patient Position Sitting Patient Tolerance Good Comments zayas within reach of VAISHALI RUWhit positioned with pillows, pt reported good tolerance, layered with towels/MHP cover, x15 min PT-OP-T Assessment and Plan Start: 01/11/24 18:16 Freq: Status: Active Protocol: Document 02/26/24 09:50 SW (Rec: 02/26/24 10:48 [id number]) Physical Therapy Assessment Goals Three Impairment Decreased R shoulder strength limited by TSA protocol STG Duration 03/07/24 Chcf Goal (LTG) Pt will be able to hang a shirt up overhead. LTG Duration 04/18/24 Two Impairment Decreased functional R shoulder AROM Short Term Goal (STG) Pt will be able to relieve his constant and annoying R shoulder pain (rated 3/10) to tolerate sleeping in his bed at night. 02/07/24: No pain at rest, sleeping sometimes twingy sharp pain, rated 3-4/10. Sleeping in recliner. STG Duration 03/07/24 progressing 02/07/24 . Director Of Public Relations Goal (LTG) Pt will be able to scatch his head. LTG Duration 04/18/24 One Impairment Pt lacks appropriate self care HEP. Short Term Goal (STG) Pt will be educated in proper sitting/standing posture and self care pain management ( modalities and positioning). and education of significant other to assist pt in HEP as needed. 01/31/24: Pt education in proper sitting posture, pt education on modalities for pain, sleep positioning 02/05/24: Pt education in posture, breathwork for decreased cervical tension STG Duration 03/07/24 progressing (needs address of standing posture) Chcf Goal (LTG) Pt will be independent and consistent in an effective self care HEP for progressive R shoulder ROM and when appropriate strengthening. 01/31/24: Table slides(passive R shoulder flex, less than 90 degrees), Finger AROM 02/05/24: Pt education on precautions. 02/07/24: HEP: Finger flexion/ext, Finger AB/AD, and table slide flexion. 02/14/24: Shoulder Iso's LTG Duration 04/18/24 progressed 02/07/24 . Assessment Summary Assessment Continued per pt protocol, R TSA and Tenodesis of Long head of biceps. Progressed pt strength within early phase II protocol this session, with low level TB shoulder IR/ER, ER less than 45 degrees per protocol, only to neutral today, pt reports good tolerance, pain free. Pt reports pain free at end of session today, though reports has pain at times that is the same as it has been since surgery. Continued focus on stretching IR/ER within pt ROM limitations. Plan to review and followup on pt tolerance and form carryover to shoulder IR/ER with low level TB next session, less than 45 deg ER, and issue HEP HO. Physical Therapy Plan Frequency and Duration Frequency of Treatment 2x/Week Duration of treatment (weeks) 12 Plan of Care Start Date 01/24/24 Plan of Care End Date 04/18/24 Therapeutic Interventions Therapeutic Interventions Home Exercise Program,Manual Therapy,Self-Care/Home Management,Soft Tissue Mobilization,Taping, Therapeutic Activities, Therapeutic Exercises Modalities Cold Pack/Ice Massage,Electric Stimulation,Hot Packs Next Visit Focus/Plan Next Note Type Treatment Note Next Visit Plan Address standing posture for STG. Review shoulder IR/ER w/ low level TB, less than 45 deg ER, issue HEP HO if good carryover of form and adherance to precautions. ROM focus on improving R shoulder IR (at 30 deg's AB in scapular plane) and scap stabilization strength. Cont gradual ROM, and WAIT to do very gentle grade I oscillations until IR ROM met (per protocol); otherwise cont early phase II protocol. POC: Rehab per protocol of R TSA w/tenodesis of Long Head of Biceps Rpr. Therapeutic Ex (when appropriate strengthening, ROM), Therapeutic Activity (posture and, manual therapy (STM), Pt Education (HEP,). Modalities as needed (cold pack, MHP, E stim
--- NOTE | 2024-02-28 11:41 | PT.OTN ---
Current Diagnoses Primary osteoarthritis, right shoulder (02/28/24) Stiffness of right shoulder, not elsewhere classified (02/28/24) Muscle weakness (generalized) (02/28/24) Physical Therapy Treatment Note PT-OP-A Visit Information Start: 01/11/24 18:16 Freq: Status: Active Protocol: Document 02/28/24 10:45 LRN (Rec: 02/28/24 11:40 LRN [id number]) Out-Patient Physical Therapy Visit Information Visit Information Visit Type Treatment Note Visit Note Guido Will be in [place], [place] : 03/09/24-04/13/24. Visit Start Time 10:45 Visit Stop Time 11:26 Visit Number 05/12 8 after PN Evaluation Information Evaluation Date 01/24/24 Precautions Precautions R total shoulder arthroplasty, tenodesis of Long Head of Biceps. NWBing R UE. Sling at all times (6 wks), removal 3 times a day to move elbow wrist, fingers. PROM only: IR to body, ER to 0 deg's, FF to 90 deg's ABD to 0 deg's, arm in neutral, NO ER of arm. PT-OP-B Current Condition Start: 01/11/24 18:16 Freq: Status: Active Protocol: Document 01/24/24 13:51 LRN (Rec: 01/24/24 14:43 LRN [id number]) Current Condition History of Current Condition Onset Date Jan 02, 2024 Current Complaints Annoying pain at the shoulder and incision. R neck is tight wearing sling History of Current Condition Pt reports 3 wks ago (on Sun) undergoing an elective surgery of R shoulder GHJ arthroplasty due to arthritis, attending with a written protocol in hand. Pt is R hand dominant. He reports being taught previously Codman 's exercise (50x each direction) and table slides forward and to the side. After wearing sling 4-5 hrs he has tightness of the neck. States HERNÁNDEZ told him to wear the sling to make him comfortable . Wears when going out of the house but removes it when sitting. 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 He was hoping to be gone for 6 wks towards the end of January, but is willing to stay around if needed for his rehab. Future Testing and Treatments Planned Feb 11 is f/u appt. Treatment Goals Patient/Caregiver Goals Pt goals: Be able to scatch his head. Be able to hang a shirt up overhead. Relieve R shouulder pain that was constant and annoying. Consistent with a HEP. Personal Factors Other Personal Factors That May Effect Arthritic back pain. R Therapy/Recovery shoulder arthroscopic surgery 30-40 yrs ago and at age 19. PT-OP-C Subjective Start: 01/11/24 18:16 Freq: Status: Active Protocol: Document 02/28/24 10:45 LRN (Rec: 02/28/24 11:40 LRN [id number]) OP-PT Subjective Patient Comments Patient Comments States shoulder is feeling pretty good. When tryuing to lift the shoulder would hurt. PT-OP-H Neuro Start: 01/11/24 18:16 Freq: Status: Active Protocol: Document 01/24/24 13:51 LRN (Rec: 01/24/24 14:43 LRN [id number]) Sensation Evaluation Gross Sensation Gross Sensation WNL PT-OP-J Posture/Palpation/Skin Start: 01/11/24 18:16 Freq: Status: Active Protocol: Document 01/24/24 13:51 LRN (Rec: 01/24/24 14:43 LRN [id number]) Posture Evaluation Position Standing Head/C-Spine Posture Forward Head Scapula Posture (R) Depressed Comments Posture Comments R shoulder low, decreased thoracic and lumbar curvature. Palpation Assessment Location R shoulder Palpation Location Anterior lateral chest in location of scar. Palpation Findings Soft Tissue Tightness, Tenderness Palpation Details Atrophy of perscapular muscles and mild increased R arm/hand . PT-OP-K Range of Motion Start: 01/11/24 18:16 Freq: Status: Active Protocol: Document 02/07/24 12:18 LRN (Rec: 02/07/24 13:05 LRN [id number]) Shoulder Goniometric Range of Motion Shoulder Right Passive Shoulder ROM WFL No Testing Position Supine Flexion 98 External Rotation at 0 degrees Abduction 0 Comments Sitting: PROM (table slide) Flexion is 87 deg's, after stretching 90 deg's. PT-OP-M Strength Start: 01/11/24 18:16 Freq: Status: Active Protocol: Document 01/24/24 13:51 LRN (Rec: 01/24/24 14:43 LRN [id number]) Shoulder Strength Shoulder Manual Muscle Testing Right Comments Deferred testing due to recent surgery. PT-OP-Q Treatments Start: 01/11/24 18:16 Freq: Status: Active Protocol: Document 02/28/24 10:45 LRN (Rec: 02/28/24 11:40 LRN [id number]) Cardio Equipment Upper Body Ergometer (UBE) Duration (Minutes) 3 RPM 100 Seat Position 11 Height 2 Other AAROM for R shoulder Therapeutic Exercises Supine Exercises Scapular protraction Supine Exercise Name Arms in V-reaching towards ceiling Side right Reps/Minutes 15x Scapular depression/elevation Side bilateral Reps/Minutes 15x AAROM R shoulder Supine Exercise Name Active R shoulder fflexion, ER , IR Side right Reps/Minutes 10x Comments Pt not able to tolerate Active or AA ROM for AB, Sidelying Exercises Scapular retraction. Side right Reps/Minutes 10-15x Sitting Exercises Keira AB Sitting Exercise Name At max comfortable ROM after table slide for Keira AB Side right Reps/Minutes 2-3 SH f/b rest x 10 Comments Cued for scap stab in retract/ depression for keira hold Temi's Sitting Exercise Name AAROM for flex, ABD Side right Reps/Minutes 10x Table slides Sitting Exercise Name R shoulder AB Side right Reps/Minutes 3' Standing Exercises Wall push up Standing Exercise Name Wall Push up: Toes 18 from wall. Reps/Minutes 15x Wall slide Standing Exercise Name FLex stretch Reps/Minutes 3' PT-OP-R Modalities Start: 01/11/24 18:16 Freq: Status: Active Protocol: Document 02/05/24 11:37 (Rec: 02/05/24 17:01 SW [id number]) Hot Pack/Cold Pack Treatment MHP Location Cervical/upper shoulder Patient Position Sitting Patient Tolerance Good Comments zayas within reach of IGNACIA TOM positioned with pillows, pt reported good tolerance, layered with towels/MHP cover, x15 min PT-OP-T Assessment and Plan Start: 01/11/24 18:16 Freq: Status: Active Protocol: Document 02/28/24 10:45 LRN (Rec: 02/28/24 11:40 LRN [id number]) Physical Therapy Assessment Goals Three Impairment Decreased R shoulder strength limited by TSA protocol STG Duration 03/07/24 Fpc Goal (LTG) Pt will be able to hang a shirt up overhead. LTG Duration 04/18/24 Two Impairment Decreased functional R shoulder AROM Short Term Goal (STG) Pt will be able to relieve his constant and annoying R shoulder pain (rated 3/10) to tolerate sleeping in his bed at night. 02/07/24: No pain at rest, sleeping sometimes twingy sharp pain, rated 3-4/10. Sleeping in recliner. STG Duration 03/07/24 progressing 02/07/24 . Nursing Home Manager Goal (LTG) Pt will be able to scatch his head. LTG Duration 04/18/24 One Impairment Pt lacks appropriate self care HEP. Short Term Goal (STG) Pt will be educated in proper sitting/standing posture and self care pain management ( modalities and positioning). and education of significant other to assist pt in HEP as needed. 01/31/24: Pt education in proper sitting posture, pt education on modalities for pain, sleep positioning 02/05/24: Pt education in posture, breathwork for decreased cervical tension STG Duration 03/07/24 progressing (needs address of standing posture) Fpc Goal (LTG) Pt will be independent and consistent in an effective self care HEP for progressive R shoulder ROM and when appropriate strengthening. 01/31/24: Table slides(passive R shoulder flex, less than 90 degrees), Finger AROM 02/05/24: Pt education on precautions. 02/07/24: HEP: Finger flexion/ext, Finger AB/AD, and table slide flexion. 02/14/24: Shoulder Iso's LTG Duration 04/18/24 progressed 02/07/24 . Assessment Summary Assessment Pt is ~8 wks 1day, s/p RTSA and tenodesis of Long Head of Biceps. Pt had anterior R shldr pain after TB scap retract (TB around Scap adjacent to GHJ). Good tolerance to incr'd ROM strengthening. Physical Therapy Plan Frequency and Duration Frequency of Treatment 2x/Week Duration of treatment (weeks) 12 Plan of Care Start Date 01/24/24 Plan of Care End Date 04/18/24 Therapeutic Interventions Therapeutic Interventions Home Exercise Program,Manual Therapy,Self-Care/Home Management,Soft Tissue Mobilization,Taping, Therapeutic Activities, Therapeutic Exercises Modalities Cold Pack/Ice Massage,Hot Packs Next Visit Focus/Plan Next Note Type Progress Note Next Visit Plan PN assessment for POC. Address standing posture for STG. Review shoulder IR/ER w/ low level TB, less than 45 deg ER, issue HEP HO if good carryover of form and adherance to precautions. ROM focus on improving R shoulder IR (at 30 deg's AB in scapular plane) and scap stabilization strength. Cont gradual ROM, and WAIT to do very gentle grade I oscillations until IR ROM met (per protocol); otherwise cont early phase II protocol and today progress into late phase II. POC: Rehab per protocol now timewise in late phase II of R TSA w/tenodesis of Long Head of Biceps Rpr. Therapeutic Ex (when appropriate strengthening, ROM), Therapeutic Activity (posture and, manual therapy (STM), Pt Education (HEP,). Modalities as needed (cold pack).
--- NOTE | 2024-03-04 17:28 | PT.OTN ---
Current Diagnoses Primary osteoarthritis, right shoulder (03/04/24) Stiffness of right shoulder, not elsewhere classified (03/04/24) Muscle weakness (generalized) (03/04/24) Physical Therapy Treatment Note PT-OP-A Visit Information Start: 01/11/24 18:16 Freq: Status: Active Protocol: Document 03/04/24 09:37 LRN (Rec: 03/04/24 10:51 LRN [id number]) Out-Patient Physical Therapy Visit Information Visit Information Visit Type Treatment Note Visit Note Guido Will be in [place], [place] : 03/09/24-04/13/24. Visit Start Time 09:50 Visit Stop Time 10:37 Visit Number 06/12 9 after PN Evaluation Information Evaluation Date 01/24/24 Precautions Precautions R total shoulder arthroplasty, tenodesis of Long Head of Biceps. NWBing R UE. Sling at all times (6 wks), removal 3 times a day to move elbow wrist, fingers. PROM only: IR to body, ER to 0 deg's, FF to 90 deg's ABD to 0 deg's, arm in neutral, NO ER of arm. PT-OP-B Current Condition Start: 01/11/24 18:16 Freq: Status: Active Protocol: Document 01/24/24 13:51 LRN (Rec: 01/24/24 14:43 LRN [id number]) Current Condition History of Current Condition Onset Date Jan 02, 2024 Current Complaints Annoying pain at the shoulder and incision. R neck is tight wearing sling History of Current Condition Pt reports 3 wks ago (on Sun) undergoing an elective surgery of R shoulder GHJ arthroplasty due to arthritis, attending with a written protocol in hand. Pt is R hand dominant. He reports being taught previously Codman 's exercise (50x each direction) and table slides forward and to the side. After wearing sling 4-5 hrs he has tightness of the neck. States HERNÁNDEZ told him to wear the sling to make him comfortable . Wears when going out of the house but removes it when sitting. 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 He was hoping to be gone for 6 wks towards the end of January, but is willing to stay around if needed for his rehab. Future Testing and Treatments Planned Feb 11 is f/u appt. Treatment Goals Patient/Caregiver Goals Pt goals: Be able to scatch his head. Be able to hang a shirt up overhead. Relieve R shouulder pain that was constant and annoying. Consistent with a HEP. Personal Factors Other Personal Factors That May Effect Arthritic back pain. R Therapy/Recovery shoulder arthroscopic surgery 30-40 yrs ago and at age 19. PT-OP-C Subjective Start: 01/11/24 18:16 Freq: Status: Active Protocol: Document 03/04/24 09:37 LRN (Rec: 03/04/24 10:51 LRN [id number]) OP-PT Subjective Patient Comments Patient Comments Going well. PT-OP-H Neuro Start: 01/11/24 18:16 Freq: Status: Active Protocol: Document 01/24/24 13:51 LRN (Rec: 01/24/24 14:43 LRN [id number]) Sensation Evaluation Gross Sensation Gross Sensation WNL PT-OP-J Posture/Palpation/Skin Start: 01/11/24 18:16 Freq: Status: Active Protocol: Document 01/24/24 13:51 LRN (Rec: 01/24/24 14:43 LRN [id number]) Posture Evaluation Position Standing Head/C-Spine Posture Forward Head Scapula Posture (R) Depressed Comments Posture Comments R shoulder low, decreased thoracic and lumbar curvature. Palpation Assessment Location R shoulder Palpation Location Anterior lateral chest in location of scar. Palpation Findings Soft Tissue Tightness, Tenderness Palpation Details Atrophy of perscapular muscles and mild increased R arm/hand . PT-OP-K Range of Motion Start: 01/11/24 18:16 Freq: Status: Active Protocol: Document 03/04/24 09:37 LRN (Rec: 03/04/24 10:51 LRN [id number]) Shoulder Goniometric Range of Motion Shoulder Right Passive Testing Position Sup, side, stand Comments Flex stand (120) & sup (135) ER stand (60) & sup (60) IR sidelie (40), sup (60) PT-OP-M Strength Start: 01/11/24 18:16 Freq: Status: Active Protocol: Document 01/24/24 13:51 LRN (Rec: 01/24/24 14:43 LRN [id number]) Shoulder Strength Shoulder Manual Muscle Testing Right Comments Deferred testing due to recent surgery. PT-OP-Q Treatments Start: 01/11/24 18:16 Freq: Status: Active Protocol: Document 03/04/24 09:37 LRN (Rec: 03/04/24 10:51 LRN [id number]) Cardio Equipment Upper Body Ergometer (UBE) Duration (Minutes) 7 RPM 90 Seat Position 13 Height 2 Therapeutic Exercises Supine Exercises Horiz AD Supine Exercise Name Assisted AROM Side right Reps/Minutes 10x Shdr IR/AB 30 deg's scap plane Supine Exercise Name AROM (ER to hand on belly) Side right Reps/Minutes 10x 3 AAROM R shoulder Supine Exercise Name Active R shoulder fflexion, ER , IR Side right Reps/Minutes 10x Comments Pt not able to tolerate Active or AA ROM for AB, Sidelying Exercises Shoulder ER/IR stretch' Sidelying Exercise Name Shoulder at 45 deg's AB: Self assisted ER/IR stretch Side right Reps/Minutes 15x Standing Exercises Wall push up Standing Exercise Name Wall Push up: Toes 18 from wall. Reps/Minutes 20x Wall slide Standing Exercise Name FLex stretch Reps/Minutes 3' Comments 130 deg's flexion Shldr IR/ER Standing Exercise Name Shoulder IR/ER - Man MWM to prevent R elbow pain with IR. Side right Resistance low lvl 1, min resist Reps/Minutes x10 each Comments Pain free, per protocol less than 45 d ER, Pressure for IR around forearm Shldr Iso's Standing Exercise Name ER w/shdr at 45 deg's Side right Self-Care/Home Management Treatment Education Other Education Discussed POC, pt choosing to return to therapy for recheck on return from vacation. Pt educated in progression requirement of R shoulder PROM and precaution of mvmt for no strengthning or pushing into ER in 90 deg's AB. Activities Self-Care/Home Management Activities Issued Lv 1 TB for light shdr ER/IR strengthening in ER range of 45 deg's standing. I/S pt to work on: R shdr flex, IR (to get hand on belly comfortably), horiz AD and scap protraction strengthening against gravity, & and scar mob. PT-OP-R Modalities Start: 01/11/24 18:16 Freq: Status: Active Protocol: Document 02/05/24 11:37 SW (Rec: 02/05/24 17:01 SW [id number]) Hot Pack/Cold Pack Treatment MHP Location Cervical/upper shoulder Patient Position Sitting Patient Tolerance Good Comments zayas within reach of IGNACIA TOM positioned with pillows, pt reported good tolerance, layered with towels/MHP cover, x15 min PT-OP-T Assessment and Plan Start: 01/11/24 18:16 Freq: Status: Active Protocol: Document 03/04/24 09:37 LRN (Rec: 03/04/24 10:51 LRN [id number]) Physical Therapy Assessment Rehab Potential Rehabilitation Potential Excellent Evaluation Complexity Number of Personal Factors/Comorbidities 1-2 Number of Body Systems Impaired 4 or More Clinical Presentation at Evaluation Evolving Impairments Impairments Activity Tolerance,Pain,ROM, Strength Goals Three Impairment Decreased R shoulder strength limited by TSA protocol STG Duration 03/07/24 Weight Engineer Goal (LTG) Pt will be able to hang a shirt up overhead. 03/04/24: Trying to hang shirt, but not able to very well. LTG Duration 04/18/24 start of progression 03/04/24 Two Impairment Decreased functional R shoulder AROM Short Term Goal (STG) Pt will be able to relieve his constant and annoying R shoulder pain (rated 3/10) to tolerate sleeping in his bed at night. 02/07/24: No pain at rest, sleeping sometimes twingy sharp pain, rated 3-4/10. Sleeping in recliner. 03/04/24: Pain in bed is 1/10 . STG Duration 03/07/24 (03/04/24: MET GOAL ) Weight Engineer Goal (LTG) Pt will be able to scatch his head. 03/04/24: Pt able to scratch his head. LTG Duration 04/18/24 (03/04/24: MET GOAL ) One Impairment Pt lacks appropriate self care HEP. Short Term Goal (STG) Pt will be educated in proper sitting/standing posture and self care pain management ( modalities and positioning). and education of significant other to assist pt in HEP as needed. 01/31/24: Pt education in proper sitting posture, pt education on modalities for pain, sleep positioning 02/05/24: Pt education in posture, breathwork for decreased cervical tension. 03/04/24: Pt educated in proper standing posture with TA tightening to improve lumbar lordosis and stretch upper back to minimize straight upper back posturing. STG Duration 03/07/24 (03/04/24: MET GOAL, pt needs monitoring of posture) Retirement Goal (LTG) Pt will be independent and consistent in an effective self care HEP for progressive R shoulder ROM and when appropriate strengthening. 01/31/24: Table slides(passive R shoulder flex, less than 90 degrees), Finger AROM 02/05/24: Pt education on precautions. 02/07/24: HEP: Finger flexion/ext, Finger AB/AD, and table slide flexion. 02/14/24: Shoulder Iso's 03/04/24: I/S pt in light R shoulder ER/IR strengthening w /lev1 TB, and supine: active horiz AD, scap protraction and IR stretch in scapular plane (pillow under elbow and arm AB 30?) to be able to lay hand on belly. LTG Duration 04/18/24 progressed 03/04/24 . Assessment Summary Assessment Pt is a 63 yo male, 9 wks tomorrow s/p R TSA and tenodesis of Long Head of Biceps. Pt limited with ROM ( supine) R shdr IR & flex; strength of IR/ER, scap ( winged scapula), horiz AD; pain with flex due to scar tissue binding. Today, pt is very receptive to progression of his program and adhering to precaution (not stretching into ABD/ER). He is progressing really well without hindering discomfort. He could benefit from further strengthening progression, including distal extemity exercises of light resistance as he is able to lift a coffee cup, but not heavier. The pt is going on vacation ~4 wks during his early phase to late phase II of his rehab program ; therefore the pt would like to return to therapy on his return for assessment and rehab for progression through his program if needed. I feel this would be appropriate. Physical Therapy Plan Frequency and Duration Frequency of Treatment 2x/Week Duration of treatment (weeks) 12 Plan of Care Start Date 01/24/24 Plan of Care End Date 04/18/24 Therapeutic Interventions Therapeutic Interventions Home Exercise Program,Joint Mobilizations,Manual Therapy, Self-Care/Home Management,Soft Tissue Mobilization, Therapeutic Exercises Modalities Cold Pack/Ice Massage Next Visit Focus/Plan Next Note Type Progress Note Next Visit Plan POC: Rehab per protocol now timewise in late phase II of R TSA w/tenodesis of Long Head of Biceps Rpr. Therapeutic Ex (when appropriate strengthening, ROM), Therapeutic Activity (posture and, manual therapy (STM), Pt Education (HEP,). Modalities as needed (cold pack). Next: PN for new POC. Assess response to standing posture trng. Review shoulder IR/ER w/low level TB, less than 45 deg ER, issue HEP HO if good carryover of form and adherance to precautions. ROM focus on improving R shoulder IR (at 30 deg's AB in scapular plane) to 70 deg's and scap stabilization strength. Cont gradual ROM, and WAIT to do very gentle grade I oscillations until IR ROM met (per protocol); otherwise cont early phase II protocol and assess for progression into late phase II (03/26/24).
--- NOTE | 2024-03-04 17:41 | PT.OTN ---
Current Diagnoses Primary osteoarthritis, right shoulder (03/04/24) Stiffness of right shoulder, not elsewhere classified (03/04/24) Muscle weakness (generalized) (03/04/24) Physical Therapy Treatment Note PT-OP-A Visit Information Start: 01/11/24 18:16 Freq: Status: Active Protocol: Document 03/04/24 09:37 LRN (Rec: 03/04/24 10:51 LRN [id number]) Out-Patient Physical Therapy Visit Information Visit Information Visit Type Progress Note Visit Note Guido Will be in [place], [place] : 03/09/24-04/13/24. Visit Start Time 09:50 Visit Stop Time 10:37 Visit Number 01/12 Evaluation Information Evaluation Date 01/24/24 Precautions Precautions R total shoulder arthroplasty, tenodesis of Long Head of Biceps. NWBing R UE. Sling at all times (6 wks), removal 3 times a day to move elbow wrist, fingers. PROM only: IR to body, ER to 0 deg's, FF to 90 deg's ABD to 0 deg's, arm in neutral, NO ER of arm. PT-OP-B Current Condition Start: 01/11/24 18:16 Freq: Status: Active Protocol: Document 01/24/24 13:51 LRN (Rec: 01/24/24 14:43 LRN [id number]) Current Condition History of Current Condition Onset Date Jan 02, 2024 Current Complaints Annoying pain at the shoulder and incision. R neck is tight wearing sling History of Current Condition Pt reports 3 wks ago (on Sun) undergoing an elective surgery of R shoulder GHJ arthroplasty due to arthritis, attending with a written protocol in hand. Pt is R hand dominant. He reports being taught previously Codman 's exercise (50x each direction) and table slides forward and to the side. After wearing sling 4-5 hrs he has tightness of the neck. States HERNÁNDEZ told him to wear the sling to make him comfortable . Wears when going out of the house but removes it when sitting. 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 He was hoping to be gone for 6 wks towards the end of January, but is willing to stay around if needed for his rehab. Future Testing and Treatments Planned Feb 11 is f/u appt. Treatment Goals Patient/Caregiver Goals Pt goals: Be able to scatch his head. Be able to hang a shirt up overhead. Relieve R shouulder pain that was constant and annoying. Consistent with a HEP. Personal Factors Other Personal Factors That May Effect Arthritic back pain. R Therapy/Recovery shoulder arthroscopic surgery 30-40 yrs ago and at age 19. PT-OP-C Subjective Start: 01/11/24 18:16 Freq: Status: Active Protocol: Document 03/04/24 09:37 LRN (Rec: 03/04/24 10:51 LRN [id number]) OP-PT Subjective Patient Comments Patient Comments Going well. PT-OP-H Neuro Start: 01/11/24 18:16 Freq: Status: Active Protocol: Document 01/24/24 13:51 LRN (Rec: 01/24/24 14:43 LRN [id number]) Sensation Evaluation Gross Sensation Gross Sensation WNL PT-OP-J Posture/Palpation/Skin Start: 01/11/24 18:16 Freq: Status: Active Protocol: Document 01/24/24 13:51 LRN (Rec: 01/24/24 14:43 LRN [id number]) Posture Evaluation Position Standing Head/C-Spine Posture Forward Head Scapula Posture (R) Depressed Comments Posture Comments R shoulder low, decreased thoracic and lumbar curvature. Palpation Assessment Location R shoulder Palpation Location Anterior lateral chest in location of scar. Palpation Findings Soft Tissue Tightness, Tenderness Palpation Details Atrophy of perscapular muscles and mild increased R arm/hand . PT-OP-K Range of Motion Start: 01/11/24 18:16 Freq: Status: Active Protocol: Document 03/04/24 09:37 LRN (Rec: 03/04/24 10:51 LRN [id number]) Shoulder Goniometric Range of Motion Shoulder Right Passive Testing Position Sup, side, stand Comments Flex stand (120) & sup (135) ER stand (60) & sup (60) IR sidelie (40), sup (60) PT-OP-M Strength Start: 01/11/24 18:16 Freq: Status: Active Protocol: Document 01/24/24 13:51 LRN (Rec: 01/24/24 14:43 LRN [id number]) Shoulder Strength Shoulder Manual Muscle Testing Right Comments Deferred testing due to recent surgery. PT-OP-Q Treatments Start: 01/11/24 18:16 Freq: Status: Active Protocol: Document 03/04/24 09:37 LRN (Rec: 03/04/24 10:51 LRN [id number]) Cardio Equipment Upper Body Ergometer (UBE) Duration (Minutes) 7 RPM 90 Seat Position 13 Height 2 Therapeutic Exercises Supine Exercises Horiz AD Supine Exercise Name Assisted AROM Side right Reps/Minutes 10x Shdr IR/AB 30 deg's scap plane Supine Exercise Name AROM (ER to hand on belly) Side right Reps/Minutes 10x 3 AAROM R shoulder Supine Exercise Name Active R shoulder fflexion, ER , IR Side right Reps/Minutes 10x Comments Pt not able to tolerate Active or AA ROM for AB, Sidelying Exercises Shoulder ER/IR stretch' Sidelying Exercise Name Shoulder at 45 deg's AB: Self assisted ER/IR stretch Side right Reps/Minutes 15x Standing Exercises Wall push up Standing Exercise Name Wall Push up: Toes 18 from wall. Reps/Minutes 20x Wall slide Standing Exercise Name FLex stretch Reps/Minutes 3' Comments 130 deg's flexion Shldr IR/ER Standing Exercise Name Shoulder IR/ER - Man MWM to prevent R elbow pain with IR. Side right Resistance low lvl 1, min resist Reps/Minutes x10 each Comments Pain free, per protocol less than 45 d ER, Pressure for IR around forearm Shldr Iso's Standing Exercise Name ER w/shdr at 45 deg's Side right Self-Care/Home Management Treatment Education Other Education Discussed POC, pt choosing to return to therapy for recheck on return from vacation. Pt educated in progression requirement of R shoulder PROM and precaution of mvmt for no strengthning or pushing into ER in 90 deg's AB. Activities Self-Care/Home Management Activities Issued Lv 1 TB for light shdr ER/IR strengthening in ER range of 45 deg's standing. I/S pt to work on: R shdr flex, IR (to get hand on belly comfortably), horiz AD and scap protraction strengthening against gravity, & and scar mob. PT-OP-R Modalities Start: 01/11/24 18:16 Freq: Status: Active Protocol: Document 02/05/24 11:37 SW (Rec: 02/05/24 17:01 SW [id number]) Hot Pack/Cold Pack Treatment MHP Location Cervical/upper shoulder Patient Position Sitting Patient Tolerance Good Comments zayas within reach of IGNACIA TOM positioned with pillows, pt reported good tolerance, layered with towels/MHP cover, x15 min PT-OP-T Assessment and Plan Start: 01/11/24 18:16 Freq: Status: Active Protocol: Document 03/04/24 09:37 LRN (Rec: 03/04/24 10:51 LRN [id number]) Physical Therapy Assessment Rehab Potential Rehabilitation Potential Excellent Evaluation Complexity Number of Personal Factors/Comorbidities 1-2 Number of Body Systems Impaired 4 or More Clinical Presentation at Evaluation Evolving Impairments Impairments Activity Tolerance,Pain,ROM, Strength Goals Three Impairment Decreased R shoulder strength limited by TSA protocol Short Term Goal (STG) Pt will begin phase IV of protocol (16 wks s/p surgery) for non-painful AROM, with tolerance to WBing exercises as appropriate and tolerates AA/AROM strengthening (AROM of 140 deg's flex and 120 deg's with good mechanics, 60 deg's ER in scapular plane in 30 deg 's AB). STG Duration 04/21/24 [employer] Developer Goal (LTG) Pt will be able to hang a shirt up overhead and will progress into phase IV of protocol (ER 75 deg's, moderate challenging functional activities). 03/04/24: Trying to hang shirt, but not able to very well. LTG Duration 05/16/24 start of progression 03/04/24 Two Impairment Decreased functional R shoulder AROM Short Term Goal (STG) Pt will be able to relieve his constant and annoying R shoulder pain (rated 3/10) to tolerate sleeping in his bed at night. 02/07/24: No pain at rest, sleeping sometimes twingy sharp pain, rated 3-4/10. Sleeping in recliner. 03/04/24: Pain in bed is 1/10 . STG Duration 03/07/24 (03/04/24: MET GOAL ) [employer] Developer Goal (LTG) Pt will be able to scatch his head. 03/04/24: Pt able to scratch his head. LTG Duration 04/18/24 (03/04/24: MET GOAL ) One Impairment Pt lacks appropriate self care HEP. Short Term Goal (STG) Pt will be educated in proper sitting/standing posture and self care pain management ( modalities and positioning). and education of significant other to assist pt in HEP as needed. 01/31/24: Pt education in proper sitting posture, pt education on modalities for pain, sleep positioning 02/05/24: Pt education in posture, breathwork for decreased cervical tension. 03/04/24: Pt educated in proper standing posture with TA tightening to improve lumbar lordosis and stretch upper back to minimize straight upper back posturing. STG Duration 04/21/24 (03/04/24: MET GOAL, pt needs monitoring of posture) [employer] Developer Goal (LTG) Pt will be independent and consistent in an effective self care HEP for progressive R shoulder ROM and when appropriate strengthening. 01/31/24: Table slides(passive R shoulder flex, less than 90 degrees), Finger AROM 02/05/24: Pt education on precautions. 02/07/24: HEP: Finger flexion/ext, Finger AB/AD, and table slide flexion. 02/14/24: Shoulder Iso's 03/04/24: I/S pt in light R shoulder ER/IR strengthening w /lev1 TB, and supine: active horiz AD, scap protraction and IR stretch in scapular plane (pillow under elbow and arm AB 30?) to be able to lay hand on belly. LTG Duration 05/16/24 progressed 03/04/24 . Assessment Summary Assessment Pt is a 63 yo male, 9 wks tomorrow s/p R TSA and tenodesis of Long Head of Biceps. Pt limited with ROM ( supine) R shdr IR & flex; strength of IR/ER, scap ( winged scapula), horiz AD; pain with flex due to scar tissue binding. Today, pt is very receptive to progression of his program and adhering to precaution (not stretching into ABD/ER). He is progressing really well without hindering discomfort. He could benefit from further strengthening progression, including distal extemity exercises of light resistance as he is able to lift a coffee cup, but not heavier. The pt is going on vacation ~4 wks during his early phase to late phase II of his rehab program ; therefore the pt would like to return to therapy on his return for assessment and rehab for progression through his program if needed. I feel this would be appropriate. Physical Therapy Plan Frequency and Duration Frequency of Treatment 2x/Week Duration of treatment (weeks) 10 Plan of Care Start Date 03/04/24 Plan of Care End Date 05/16/24 Therapeutic Interventions Therapeutic Interventions Home Exercise Program,Joint Mobilizations,Manual Therapy, Self-Care/Home Management,Soft Tissue Mobilization, Therapeutic Exercises Modalities Cold Pack/Ice Massage Next Visit Focus/Plan Next Note Type Treatment Note Next Visit Plan POC: Rehab per protocol now timewise in late phase II of R TSA w/tenodesis of Long Head of Biceps Rpr. Therapeutic Ex (when appropriate strengthening, ROM), Therapeutic Activity (posture and, manual therapy (STM), Pt Education (HEP,). Modalities as needed (cold pack). Next: PN for new POC. Assess response to standing posture trng. Review shoulder IR/ER w/low level TB, less than 45 deg ER, issue HEP HO if good carryover of form and adherance to precautions. ROM focus on improving R shoulder IR (at 30 deg's AB in scapular plane) to 70 deg's and scap stabilization strength. Cont gradual ROM, and WAIT to do very gentle grade I oscillations until IR ROM met (per protocol); otherwise cont early phase II protocol and assess for progression into late phase II (03/26/24).
--- NOTE | 2024-07-01 14:11 | PT.OPDS ---
Current Diagnoses Primary osteoarthritis, right shoulder (03/04/24) Stiffness of right shoulder, not elsewhere classified (03/04/24) Muscle weakness (generalized) (03/04/24) Visit Care Team Role Provider Type Florentino Saleh MD Family Provider Physician Primary Care Provider Specialty: Family Practice Address: [address] [place] [address], [place], [address] Email: [email or web address] Kyle Menendez PA-C Attending Provider Non-Staff Referring Provider Specialty: Medical Address: [address] [place] [address], [id number] Email: Visit Number Visit Number 01/12 Discharge Summary PT-OP-B Current Condition Start: 01/11/24 18:16 Freq: Status: Active Protocol: Document 01/24/24 13:51 LRN (Rec: 01/24/24 14:43 LRN [id number]) Current Condition History of Current Condition Onset Date Jan 02, 2024 Current Complaints Annoying pain at the shoulder and incision. R neck is tight wearing sling History of Current Condition Pt reports 3 wks ago (on Sun) undergoing an elective surgery of R shoulder GHJ arthroplasty due to arthritis, attending with a written protocol in hand. Pt is R hand dominant. He reports being taught previously Codman 's exercise (50x each direction) and table slides forward and to the side. After wearing sling 4-5 hrs he has tightness of the neck. [facility] MD told him to wear the sling to make him comfortable . Wears when going out of the house but removes it when sitting. 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 He was hoping to be gone for 6 wks towards the end of January, but is willing to stay around if needed for his rehab. Future Testing and Treatments Planned Feb 11 is f/u appt. Treatment Goals Patient/Caregiver Goals Pt goals: Be able to scatch his head. Be able to hang a shirt up overhead. Relieve R shouulder pain that was constant and annoying. Consistent with a HEP. Personal Factors Other Personal Factors That May Effect Arthritic back pain. R Therapy/Recovery shoulder arthroscopic surgery 30-40 yrs ago and at age 19. PT-OP-C Subjective Start: 01/11/24 18:16 Freq: Status: Active Protocol: Document 03/04/24 09:37 LRN (Rec: 03/04/24 10:51 LRN [id number]) OP-PT Subjective Patient Comments Patient Comments Going well. PT-OP-H Neuro Start: 01/11/24 18:16 Freq: Status: Active Protocol: Document 01/24/24 13:51 LRN (Rec: 01/24/24 14:43 LRN [id number]) Sensation Evaluation Gross Sensation Gross Sensation WNL PT-OP-J Posture/Palpation/Skin Start: 01/11/24 18:16 Freq: Status: Active Protocol: Document 01/24/24 13:51 LRN (Rec: 01/24/24 14:43 LRN [id number]) Posture Evaluation Position Standing Head/C-Spine Posture Forward Head Scapula Posture (R) Depressed Comments Posture Comments R shoulder low, decreased thoracic and lumbar curvature. Palpation Assessment Location R shoulder Palpation Location Anterior lateral chest in location of scar. Palpation Findings Soft Tissue Tightness, Tenderness Palpation Details Atrophy of perscapular muscles and mild increased R arm/hand . PT-OP-K Range of Motion Start: 01/11/24 18:16 Freq: Status: Active Protocol: Document 03/04/24 09:37 LRN (Rec: 03/04/24 10:51 LRN [id number]) Shoulder Goniometric Range of Motion Shoulder Right Passive Testing Position Sup, side, stand Comments Flex stand (120) & sup (135) ER stand (60) & sup (60) IR sidelie (40), sup (60) PT-OP-M Strength Start: 01/11/24 18:16 Freq: Status: Active Protocol: Document 01/24/24 13:51 LRN (Rec: 01/24/24 14:43 LRN [id number]) Shoulder Strength Shoulder Manual Muscle Testing Right Comments Deferred testing due to recent surgery. PT-OP-T Assessment and Plan Start: 01/11/24 18:16 Freq: Status: Active Protocol: Document 07/01/24 14:09 KJ (Rec: 07/01/24 14:11 KJ Laptop) Physical Therapy Assessment Goals Three Impairment Decreased R shoulder strength limited by TSA protocol Short Term Goal (STG) Pt will begin phase IV of protocol (16 wks s/p surgery) for non-painful AROM, with tolerance to WBing exercises as appropriate and tolerates AA/AROM strengthening (AROM of 140 deg's flex and 120 deg's with good mechanics, 60 deg's ER in scapular plane in 30 deg 's AB). STG Duration 04/21/24 H[employer] Cementer Goal (LTG) Pt will be able to hang a shirt up overhead and will progress into phase IV of protocol (ER 75 deg's, moderate challenging functional activities). 03/04/24: Trying to hang shirt, but not able to very well. LTG Duration 05/16/24 start of progression 03/04/24 One Impairment Pt lacks appropriate self care HEP. Short Term Goal (STG) Pt will be educated in proper sitting/standing posture and self care pain management ( modalities and positioning). and education of significant other to assist pt in HEP as needed. 01/31/24: Pt education in proper sitting posture, pt education on modalities for pain, sleep positioning 02/05/24: Pt education in posture, breathwork for decreased cervical tension. 03/04/24: Pt educated in proper standing posture with TA tightening to improve lumbar lordosis and stretch upper back to minimize straight upper back posturing. STG Duration 04/21/24 (03/04/24: MET GOAL, pt needs monitoring of posture) Snf Goal (LTG) Pt will be independent and consistent in an effective self care HEP for progressive R shoulder ROM and when appropriate strengthening. 01/31/24: Table slides(passive R shoulder flex, less than 90 degrees), Finger AROM 02/05/24: Pt education on precautions. 02/07/24: HEP: Finger flexion/ext, Finger AB/AD, and table slide flexion. 02/14/24: Shoulder Iso's 03/04/24: I/S pt in light R shoulder ER/IR strengthening w /lev1 TB, and supine: active horiz AD, scap protraction and IR stretch in scapular plane (pillow under elbow and arm AB 30?) to be able to lay hand on belly. LTG Duration 05/16/24 progressed 03/04/24 . Progress Towards Goals Progress Towards Goals Progressing Toward Goals Physical Therapy Plan Discharge Physical Therapy Discharge Reasons No Longer Attending PT Discharge Comments Initial PT evaluation 01/24/24. Attended 10 follow up visits the last on 03/04/24. Pt cancelled further visits due to going on vacation for 4 weeks. He did not resume appointments after that time and will now be discharged.
== END 2024-07-01 14:33 | disposition home or self-care (01) ==
LOC: PHYS 09:45
PROVIDERS: Family Provider Family Medicine; PCP Family Medicine; Referring Provider Physician Assistant Surgical; Visit Provider Physician Assistant Surgical
DX: M19.011 Primary osteoarthritis, right shoulder (principal); M62.81 Muscle weakness (generalized); M25.611 Stiffness of right shoulder, not elsewhere classified
CPT/HCPCS: 97110; 97140; 97162; 97535

== ENCOUNTER → 2025-01-31 08:03 | Outpatient (CLI) | payer MEDICARE, SELFPAY ==
[2025-01-31 10:34] LABS: Alanine Aminotransferase 22 IU/L (<50); Albumin 4.0 g/dL (3.5-5.0); Albumin Globulin Ratio 1.4 (1.0-2.8); Alkaline Phosphatase 49 U/L (38-126); Blood Urea Nitrogen 14 mg/dL (9-20); Calcium 9.3 mg/dL (8.4-10.2); Carbon Dioxide 25 mmol/L (22-32); Chloride 106 mmol/L (98-107); Cholesterol 200 mg/dL (140-199); Estimated Glomerular Filt Rate > 60 mL/min (>60); Globulin 2.9 g/dL (1.7-4.1); Glucose 91 mg/dL (70-99); HDL Cholesterol 67 mg/dL (40-60); HEMOLYSIS < 15 (0-50); Potassium 4.8 mmol/L (3.4-5.1); Sodium 139 mmol/L (137-145); Total Protein 6.9 g/dL (6.3-8.2); Triglycerides 124 mg/dL (35-150)
[2025-01-31 11:00] LABS: Thyroid Stimulating Hormone 1.35 uIU/mL (0.47-4.68)
[2025-01-31 13:34] LABS: Add Manual Diff / Slide Review NO; Hematocrit 45.3 % (41-53); Hemoglobin 15.6 g/dL (13.5-17.5); Lymphocytes Absolute Auto 1000 /uL (1100-4500); Mean Corpuscular HGB Conc 34.5 % (30-36); Mean Corpuscular Hemoglobin 30.3 PG (26-34); Mean Corpuscular Volume 87.7 fL (80-100); Platelet Count 311 X10^3/uL (150-400)
[2025-02-02 12:12] LABS: PSA, Total 0.9 ng/mL (0.0-4.0)
== END ==
PROVIDERS: Family Provider Family Medicine; PCP Family Medicine; Referring Provider Family Medicine; Visit Provider Family Medicine
DX: Z13.0 Encounter for screening for diseases of the blood and blood-forming organs and certain disorders involving the immune mechanism (principal); Z13.220 Encounter for screening for lipoid disorders; Z13.29 Encounter for screening for other suspected endocrine disorder; R73.9 Hyperglycemia, unspecified; I10 Essential (primary) hypertension; N40.1 Benign prostatic hyperplasia with lower urinary tract symptoms; R35.0 Frequency of micturition
CPT/HCPCS: 36415; 80053; 80061; 84153; 84154; 84443; 85025